=== PATIENT | male | born 1960 | race Caucasian/White ===

== ENCOUNTER 2016-05-22 11:18 | Emergency (ER) | payer OTHER ==
[2016-05-22] MEDS ORDERED: NS 1,000 ML IV ONE (13:34)
--- NOTE | 2016-05-22 13:34 | UCPHY ---
H & P Time Seen by Provider: 05/22/16 13:12 Patient Type: Established HPI/ROS: 55-year-old male presents complaining of 6-12 months of left middle and left lower quadrant abdominal pain stating that he has intermittently been constipated for that entire time and has tried multiple things including high- fiber diet as well as Mag citrate, so softeners, Imodium. No nausea or vomiting He came to urgent care today because the family was able to get him out of the house, there was no particular change in his pain today as opposed to the last 6 -12 months. No fevers no chills no diarrhea. Review of systems As per HPI General no fever no chills no weakness HEENT no eye pain no eye discharge. No eye redness, no sore throat Respiratory no cough, no shortness of breath Cardiac no chest pain, no peripheral edema GI positive abdominal pain, no diarrhea, positive constipation, no nausea, no vomiting no flank pain, no hematuria, no dysuria Musculoskeletal no myalgias, no joint pain Heme no easy bruising, no easy bleeding Endo no polyuria, no polydipsia Skin no rashes, no pruritus Neuro no syncope, no dizziness, no headaches Psych is no suicidal ideation, no homicidal ideation Past Medical/Surgical History: Insulin-dependent diabetes Morbid obesity Asthma Venous stasis lower extremity changes Social History: Denies alcohol or drug use Smoking Status: Former smoker Physical Exam: 55-year-old male morbidly obese, in no acute distress nontoxic appearance afebrile HEENT atraumatic normocephalic, extraocular muscles intact, anicteric Oropharynx negative for erythema negative exudate, tolerating her own secretions Neck supple no meningismus Lungs clear to auscultation bilaterally Heart regular rate and rhythm without murmur rub or gallop Abdomen obese, bowel sounds present, no discoloration, tender to palpation left middle quadrant, no guarding no rebound no pulsatile mass palpable Back no CVA tenderness, no step-offs, no spinal tenderness Extremities no cyanosis clubbing, trace edema, venous stasis changes bilateral lower extremities Neuro alert and oriented, no focal deficits Constitutional: Initial Vital Signs Temperature (C) 36.4 C 05/22/16 11:46 Heart Rate 81 05/22/16 11:46 Respiratory Rate 20 05/22/16 11:46 Blood Pressure 151/73 H 05/22/16 11:46 O2 Sat (%) 91 L 05/22/16 11:46 O2 Delivery Mode Room Air Allergies/Adverse Reactions: Penicillins Allergy (Intermediate, Verified 05/22/16 11:44) Hives meperidine HCl [From Demerol] Allergy (Verified 05/22/16 11:44) Home Medications: Medication Instructions Recorded Acetaminophen [Tylenol 325mg (*)] 650 mg PO Q6H PRN 04/03/14 Albuterol Sulfate [Albuterol 2 puffs IH Q4H PRN 04/03/14 Inhaler Hfa] Cholecalciferol Vit D3 [Vitamin D3 1,000 units PO DAILY 04/03/14 (*)] Fluticasone/Salmeter 500/50Mcg 1 puffs IH BID 04/03/14 [Advair 500/50 (*)] Hydrocodone/APAP 5/325 [[place] 1 tab PO BID PRN 04/03/14 5/325 (*)] Insulin Glargine [Lantus 100 0 units SC HS 04/03/14 UNITS/ML (*)] Insulin Regular, Human [Humulin R 20 unit SQ DAILY@17 04/03/14 U-500] Insulin Regular, Human [Humulin R 30 unit IJ DAILY 04/03/14 U-500] Ipratropium/Albuterol [Duoneb (*)] 3 ml IH QID 04/03/14 Metformin HCl [Glucophage 1000 mg] 1,000 mg PO BIDMEAL 04/03/14 Docusate Sodium [Colace 100 MG (*)] 100 mg PO BID #30 cap 05/10/14 Hyoscyamine Sulfate [Levsin, 0.125 - 0.25 mg SL Q6 PRN #20 tab 05/10/14 Hyomax-Sl 0.125 mg (RX)] Cpap 05/11/14 Oxygen 05/11/14 Cyclobenzaprine [Flexeril 10 MG 10 mg PO TID PRN #30 tab 07/02/14 (*)] oxyCODONE IR [Oxycodone Ir (*)] 5 - 10 mg PO Q4-6PRN PRN #20 tab 07/02/14 Lisinopril 40 BID 08/25/15 Clonidine 05/22/16 TOPIRAMATE 01/28/17 Verapamil 05/22/16 Medical Decision Making - Diagnostics Imaging: CT abdomen negative for acute pathology ED Course/Re-evaluation: Patient seen and evaluated for left-sided abdominal pain of 6-12 months duration. Physical exam benign other than morbid obesity Labs within normal limits Blood sugar elevated Impression Left sided abdominal pain, unknown etiology Some component of constipation Hyperglycemia, no acidosis Plan Given IV fluids CT abdomen negative for acute pathology Patient advised to continue constipation regimen including increasing fiber Patient also advised to follow up with primary care physician as soon as possible - Data Points Laboratory Results: Laboratory Results 05/22/16 13:26 05/22/16 13:26 Medications Given: Discontinued Medications Sodium Chloride (Ns) 1,000 mls @ 0 mls/hr IV ONCE ONE PRN Reason: Wide Open Stop: 05/22/16 13:35 Last Admin: 05/22/16 13:30 Dose: 1,000 mls Departure - Departure Disposition: Home, Routine, Self-Care Clinical Impression: Constipation, Left sided abdominal pain of unknown cause Condition: Good Instructions: Constipation (ED), High Fiber Diet (ED) Referrals: Galileo Mccabe MD [Primary Care Provider] - As per Instructions - PQRS PQRS Measurement: na
[2016-05-22 13:38] LABS: % IMMATURE GRANULYOCYTES 0.4 % (0.0-1.1); ABSOLUTE IMMATURE GRANULOCYTES 0.04 10^3/uL (0.00-0.10); ADD DIFF? NO; ADD MORPH? NO; ADD SCAN? NO; ATYPICAL LYMPHOCYTE FLAG 0 (0-99); FRAGMENT RBC FLAG 0 (0-99); HEMATOCRIT 40.3 % (40.0-51.0); HEMOGLOBIN 12.4 g/dL (13.7-17.5); LEFT SHIFT FLG 0 (0-99); LIPEMIA HEMOLYSIS FLAG 80 (0-99); MEAN CELL HEMOGLOBIN 27.3 pg (27.9-34.1); MEAN CELL HEMOGLOBIN CONCENTR. 30.8 g/dL (32.4-36.7); MEAN CELL VOLUME 88.8 fL (81.5-99.8); MEAN PLATELET VOLUME 10.3 fL (8.7-11.7); PLATELET CLUMPS FLAG 0 (0-99); PLATELET COUNT 231 10^3/uL (150-400); RED BLOOD CELL COUNT 4.54 10^6/uL (4.40-6.38); RED CELL DISTRIBUTION WIDTH 15.5 % (11.5-15.2)
[2016-05-22 13:49] LABS: ALBUMIN 3.7 g/dL (3.5-5.0); BILIRUBIN,TOTAL 0.6 mg/dL (0.1-1.4); CALCIUM 9.2 mg/dL (8.5-10.4); CREATININE 1.9 mg/dL (0.7-1.3); POTASSIUM 4.3 mEq/L (3.5-5.2); TOTAL PROTEIN 7.7 g/dL (6.3-8.2)
[2016-05-22 15:12] LABS: COLOR YELLOW; LEUKOCYTE ESTERASE,URINE NEGATIVE (NEGATIVE); NITRITE,URINE NEGATIVE (NEGATIVE); PH,URINE 5.5 (5.0-7.5)
[2016-05-22 15:25] LABS: MUCUS 2+ /lpf (NONE-1+); WBC,URINE NONE SEEN /hpf (0-3)
[2016-05-22 15:34] VITALS: BP 157/65; PULSE 74; TEMP 97.7
[2016-05-22 15:45] VITALS: O2SAT 95
[2016-05-22 15:49] VITALS: RESP 16
--- NOTE | 2016-05-22 16:36 | CT ---
CT Scan of the Abdomen and Pelvis, Without Contrast Indication: Left lower quadrant pain. Obesity and renal insufficiency. Technique: Multidetector helical CT imaging was performed from the kidneys to the urinary bladder wi thout contrast. Dose reduction techniques were utilized. Comparison: None. Findings: Large body habitus, with the left flank extending beyond the [id number] results in mild attenuation artifact. The subcutaneous tissues are not included in the [id number]. No pneumoperitoneum, free fluid, or mass. Several borderline enlarged lymph nodes are present in the bilateral inguinal and left external iliac distribution. Bowel pattern is normal with scattered diverticula throughout the sigmoid colon. No acute diverticuli tis or bowel obstruction. No hydronephrosis, nephrolithiasis, or ureteral calculi. The urinary bladder is completely empty. The noncontrast liver, spleen, pancreas, gallbladder, and adrenal glands are normal. The abdominal ao rta is normal caliber. The lung bases are clear. No fracture or bone lesion. Mild multilevel degenera tive disk and facet arthropathy. Impression: 1. No acute intraabdominal process. 2. Nonspecific bilateral inguinal left external iliac lymphadenopathy may be sequela of chronic venou s insufficiency and inflammation. Recommend follow up. 3. Minimal diverticulosis. No acute diverticulitis. 4. No hydronephrosis or ureteral calculi. Comment: The case was discussed with Dr. Randa Silva at 3:10 p.m. May 22, 2016. Attention: This CT examination is specifically designed to evaluate patients who are clinically susp ected of having acute obstructive uropathy. This examination does not use radiographic contrast, and as such, provides only a limited evaluation of the abdomen, pelvis and retroperitoneum. If there i s further clinical suspicion for pathological conditions other than obstructive uropathy, a complete CT evaluation of the abdomen and pelvis utilizing intravenous, oral, and rectal contrast should be co nsidered.
== END 2016-05-22 15:40 | disposition home or self-care (01) ==
LOC: CED 11:18
DX: R10.32 Left lower quadrant pain (principal); K59.00 Constipation, unspecified; E11.9 Type 2 diabetes mellitus without complications; E66.01 Morbid (severe) obesity due to excess calories; Z68.43 Body mass index [BMI] 50.0-59.9, adult; Z87.891 Personal history of nicotine dependence
CPT/HCPCS: 74176-PO; 80053-PO; 81003-PO; 81015-PO; 83690-PO; 85025-PO; 96360-PO; G0463-PO

== ENCOUNTER 2016-06-13 08:57 | Emergency (ER) | payer OTHER ==
[2016-06-13 09:36] VITALS: TEMP 98.6
[2016-06-13 10:28] LABS: COLOR YELLOW; LEUKOCYTE ESTERASE,URINE NEGATIVE (NEGATIVE); NITRITE,URINE NEGATIVE (NEGATIVE); PH,URINE 6.5 (5.0-7.5)
[2016-06-13] MEDS ORDERED: DIAZEPAM 5 MG TAB PO ONE (10:32)
--- NOTE | 2016-06-13 10:39 | UCPHY ---
H & P Time Seen by Provider: 06/13/16 09:29 Patient Type: Established HPI/ROS: This pleasant morbidly obese patient has a sensation of difficulty urinating over the past 24 hours with mild suprapubic discomfort. He has also had constipation recently it has been taking multiple [id number] medications with partial relief. He did have a small bowel movement today but was slightly firm. He has had similar symptoms in the past with extensive workup by Dr. Salazar of Urology that was negative for any significant pathology in terms of prostate or other. Currently he denies any discomfort passing urine he just feels like he is having small amounts he is having urgency. ROS: No fevers or chills. No nausea vomiting. No flank pain. No testicle pain. No urethral discharge. No significant abdominal pain 7 point ROS is otherwise negative Past Medical/Surgical History: Morbid obesity Previous negative prostatic workup with Dr. Salazar Diabetes Constipation Smoking Status: Former smoker Physical Exam: General Appearance: Pleasant morbidly obese (greater than 300 lb) male Alert, no distress. Eyes: Pupils equal and round no pallor or injection. ENT, Mouth: Mucous membranes moist. Respiratory: There are no retractions, lungs are clear to auscultation. Cardiovascular: Regular rate and rhythm. Gastrointestinal: Obese, soft, mild lower belly tenderness over the bladder region. No guarding or rebound. Back: No CVA tenderness : No testicle tenderness Neurological: Alert Skin: Warm and dry, no rashes. DIFFERENTIAL DIAGNOSIS: After history and physical exam differential diagnosis was considered for lower urinary obstruction, dehydration, constipation causing pressure to the bladder region, morbid obesity causing some mechanical obstruction. Constitutional: Initial Vital Signs Temperature (C) 37 C 06/13/16 09:23 Heart Rate 65 06/13/16 09:23 Respiratory Rate 20 06/13/16 09:23 Blood Pressure 145/78 H 06/13/16 09:23 O2 Sat (%) 91 L 06/13/16 09:23 O2 Delivery Mode Room Air O2 (L/minute) 2 Allergies/Adverse Reactions: Penicillins Allergy (Intermediate, Verified 06/13/16 09:38) Hives meperidine HCl [From Demerol] Allergy (Verified 06/13/16 09:38) Home Medications: Medication Instructions Recorded Acetaminophen [Tylenol 325mg (*)] 650 mg PO Q6H PRN 04/03/14 Albuterol Sulfate [Albuterol 2 puffs IH Q4H PRN 04/03/14 Inhaler Hfa] Cholecalciferol Vit D3 [Vitamin D3 1,000 units PO DAILY 04/03/14 (*)] Fluticasone/Salmeter 500/50Mcg 1 puffs IH BID 04/03/14 [Advair 500/50 (*)] Hydrocodone/APAP 5/325 [[place] 1 tab PO BID PRN 04/03/14 5/325 (*)] Insulin Glargine [Lantus 100 0 units SC HS 04/03/14 UNITS/ML (*)] Insulin Regular, Human [Humulin R 20 unit SQ DAILY@17 04/03/14 U-500] Insulin Regular, Human [Humulin R 30 unit IJ DAILY 04/03/14 U-500] Ipratropium/Albuterol [Duoneb (*)] 3 ml IH QID 04/03/14 Metformin HCl [Glucophage 1000 mg] 1,000 mg PO BIDMEAL 04/03/14 Docusate Sodium [Colace 100 MG (*)] 100 mg PO BID #30 cap 05/10/14 Hyoscyamine Sulfate [Levsin, 0.125 - 0.25 mg SL Q6 PRN #20 tab 05/10/14 Hyomax-Sl 0.125 mg (RX)] Cpap 05/11/14 Oxygen 05/11/14 Cyclobenzaprine [Flexeril 10 MG 10 mg PO TID PRN #30 tab 07/02/14 (*)] oxyCODONE IR [Oxycodone Ir (*)] 5 - 10 mg PO Q4-6PRN PRN #20 tab 07/02/14 Lisinopril 40 BID 08/25/15 Clonidine 05/22/16 TOPIRAMATE 05/22/16 Verapamil 05/22/16 Diazepam [Valium 5 MG (*)] 5 mg PO TID PRN #15 tab 06/13/16 Docusate Sodium [Colace 100 MG (*)] 100 mg PO BID PRN #20 cap 06/13/16 MDM/Departure - MDM Medications Given: Discontinued Medications Diazepam (Valium) 5 mg PO EDNOW ONE Stop: 06/13/16 10:33 Last Admin: 02/19/17 10:53 Dose: 5 mg ED Course/Re-evaluation: A Stringer cath was placed by our nurse with minimal urine output. Review of urinalysis reveals microscopic hematuria otherwise normal. Presumably the microscopic hematuria attributable to the Stringer cath placement. I think the symptoms are primarily due to constipation I counseled the patient regarding this. No evidence of UTI surgical abdomen or other concerns - Depart Disposition: Home, Routine, Self-Care Clinical Impression: Urinary urgency, Anxiety Condition: Good Instructions: Constipation (ED), High Fiber Diet (ED) Additional Instructions: Diagnoses: 1. Urinary urgency 2. Constipation 3. Anxiety Plan: George oil 1-2 tbsp a day for constipation Colace stool softener MiraLax High-fiber diet plenty fluids Valium for anxiety if needed Follow up with primary care physician Return for any significant worsening despite the treatment plan Prescriptions: Diazepam [Valium 5 MG (*)] 5 mg PO TID PRN #15 tab PRN Reason: Anxiety Docusate Sodium [Colace 100 MG (*)] 100 mg PO BID PRN #20 cap PRN Reason: Constipation Referrals: Galileo Mccabe MD [Primary Care Provider] - As per Instructions - PQRS PQRS Measurement: NA
[2016-06-13 10:41] LABS: RBC,URINE 25-50 /hpf (0-3)
[2016-06-13 10:42] LABS: BACTERIA 1+ /hpf (NONE SEEN)
[2016-06-13 13:24] VITALS: BP 137/70; PULSE 67; RESP 18; O2SAT 93
== END 2016-06-13 11:06 | disposition home or self-care (01) ==
LOC: CED 08:57
DX: R39.15 Urgency of urination (principal); K59.00 Constipation, unspecified; F41.9 Anxiety disorder, unspecified; E11.9 Type 2 diabetes mellitus without complications; E66.01 Morbid (severe) obesity due to excess calories; Z87.891 Personal history of nicotine dependence
CPT/HCPCS: 81003-PO; 81015-PO; 99214-PO; G0463-PO

== ENCOUNTER 2017-01-04 06:38 | Day surgery (SDC) | payer OTHER ==
[2016-12-13 13:20] LABS: ANION GAP 12 mEq/L (8-16); CALCIUM 9.5 mg/dL (8.5-10.4); CARBON DIOXIDE 26 mEq/l (22-31); CHLORIDE 105 mEq/L (97-110); CREATININE 1.9 mg/dL (0.7-1.3); GLOMERULAR FILTRATION RATE 37; GLUCOSE 100 mg/dL (70-100); POTASSIUM 4.4 mEq/L (3.5-5.2); SODIUM 143 mEq/L (134-144)
--- NOTE | 2016-12-14 10:02 | CPEKG ---
Heart Rate: 63 RR Interval: 952 P-R Interval: 220 QRSD Interval: 94 QT Interval: 452 QTC Interval: 463 P [place]: 14 QRS [place]: -9 T Wave [place]: 46 EKG Severity - ABNORMAL ECG - EKG Impression: SINUS RHYTHM EKG Impression: FIRST DEGREE AV BLOCK Electronically Signed By: Burak Lombardo 15-Dec-2016 15:33:04
--- NOTE | 2017-01-04 07:21 | PDANEPAE ---
ANE History of Present Illness EGD ANE Past Medical History - Cardiovascular History Hx Hypertension: Yes Hx Arrhythmias: No Hx Chest Pain: No Hx Coronary Artery / Peripheral Vascular Disease: No Hx CHF / Valvular Disease: No Hx Palpitations: No Cardiovascular History Comment: SOB WITH STAIRS AND SOME WALKING HX COPD - Pulmonary History Hx COPD: Yes Hx Asthma/Reactive Airway Disease: Yes Hx Recent Upper Respiratory Infection: No Hx Oxygen in Use at Home: No Hx Sleep Apnea: Yes Pulmonary History Comment: PLACED ON RX 12/09/17 FOR URI. FLORENCIA USES C-PAP WITH OXYGEN. INSTRUCTED TO BRING DOS. PE 2010 - Neurologic History Hx Cerebrovascular Accident: No Hx Seizures: No Hx Dementia: No - Endocrine History Hx Diabetes: Yes Hypothyroid: No Hyperthyroid: No Obesity: severe Endocrine History Comment: IDDM SINCE 1993. CHECKS BLOOD SUGARS - Renal History Hx Renal Disorders: Yes Renal History Comment: UA FREQUENCY - Liver History Hx Hepatic Disorders: No - Neurological & Psychiatric Hx Hx Neurological and Psychiatric Disorders: Yes Neurological / Psychiatric History Comment: DEPRESSION/ANXIETY - Cancer History Hx Cancer: No - Congenital Disorder History Hx Congenital Disorders: No - GI History GERD: no Hx Gastrointestinal Disorders: Yes Gastrointestinal History Comment: LT UPPER QUANDRANT PAIN. DIFFICULTY WITH BOWELS. CHANGE IN BOWEL HABITS - Other Health History Other Health History: ANDERS PALSY RT SIDE OF FACE DROOPS. VENOUS INSUFFICIENCY. JAIME FOOT NEUROPATHY - Chronic Pain History Chronic Pain: Yes (WHOLE BODY MOSTLY LEGS) - Surgical History Prior Surgeries: LT ANKLE ORIF WITH POST HARDWARE REMVL 2010. LT SHLDR RTC. RT ANKLE REPAIR. JAIME VEIN STRIPPING ANE Review of Systems Review of systems is: negative (Severe obesity Neuropathy upper and lower extemities) Review of Systems: - Exercise capacity METS (RN): 3 METS ANE Patient History - Allergies Allergies/Adverse Reactions: Penicillins Allergy (Intermediate, Verified 06/13/16 09:38) Hives meperidine HCl [From Demerol] Allergy (Verified 06/13/16 09:38) - Home Medications Home Medications: Cholecalciferol Vit D3 [Vitamin D3 (*)] 1,000 units PO DAILY 04/03/14 [Last Taken Unknown] Hydrocodone/APAP 5/325 [[place] 5/325 (*)] 1 tab PO BID PRN 04/03/14 [Last Taken Unknown] Insulin Glargine [Lantus 100 UNITS/ML (*)] 45 units SC DAILY06 04/03/14 [Last Taken 01/04/17 06:00] Insulin Regular, Human [Humulin R U-500] 20 unit SQ TID 04/03/14 [Last Taken 08/09] metFORMIN HCL [Glucophage 1000 mg] 1,000 mg PO BIDMEAL 04/03/14 [Last Taken 02/08] Oxygen 2.5 NASAL HS 05/11/14 [Last Taken Unknown] Lisinopril PO BID 08/25/15 [Last Taken 01/04/17 06:00] Clonidine PO BID 05/22/16 [Last Taken 01/04/17 06:00] TOPIRAMATE PO BID 05/22/16 [Last Taken 01/04/17 06:00] Verapamil PO BID 05/22/16 [Last Taken 01/04/17 06:00] Aspirin PO DAILY06 10/01/16 [Last Taken 01/03/17] Herbal Drugs PO DAILY 10/01/16 [Last Taken Unknown] Hyoscyamine Sulfate [Levsin, Hyomax-Sl 0.125 mg (RX)] 0.125 - 0.25 mg SL Q6 PRN 10/01/16 [Last Taken Unknown] Miralax 17 gm (*) PO DAILY 10/01/16 [Last Taken 01/02/17] Xanax PO HS 10/01/16 [Last Taken 01/03/17 21:00] - Anes Hx Anes Hx: no prior problems - Smoking Hx Smoking Status: Former smoker - Alcohol Use Alcohol Use: Rarely - Family Anes Hx Family Anes Hx: none ANE Labs/Vital Signs - Labs Result Diagrams: 12/13/16 12:30 - Vital Signs Height: 175.26 cm Weight: 161.479 kg ANE Physical Exam - Airway Neck exam: decreased ROM Mallampati Score: Class 4 - Pulmonary Pulmonary: no respiratory distress - Cardiovascular Cardiovascular: regular rate and rhythym - ASA Status ASA Status: IV ANE Anesthesia Plan Anesthesia Plan: GA with mask Total IV Anesthesia: Yes
[2017-01-04] MEDS ORDERED: MIDAZOLAM 2 MG/2 ML VIAL IVP ONE (07:27)
--- NOTE | 2017-01-04 07:27 | PDGENHP ---
History & Physical Chief Complaint: Constipation, LUQ abd pain History of Present Illness: Constipation, LLQ pain Relevant Physical Exam: GEN: NAD. Cardiac: RRR. Lungs: CTA B. Abd: Soft, nt, nd
[2017-01-04] MEDS ORDERED: D5W 1,000 ML IV SCH (07:30)
[2017-01-04] MEDS ORDERED: PROPOFOL/EMULSION 500 MG/50 ML BOTTLE IV ONE (07:32)
[2017-01-04] MEDS ORDERED: GLYCOPYRROLATE 0.2 MG/1 ML VIAL ONE (07:32)
[2017-01-04] MEDS ORDERED: LIDOCAINE 1% 2 ML INJ ID PRN (07:42)
[2017-01-04] MEDS ORDERED: LR 1,000 ML IV ONE (07:42)
[2017-01-04] MEDS ORDERED: PROPOFOL 200 MG/20 ML VIAL ONE (08:04)
[2017-01-04] MEDS ORDERED: LIDOCAINE 2% 5 ML SDV ONE (08:05)
[2017-01-04] MEDS ORDERED: ONDANSETRON 4 MG/2 ML VIAL IVP PRN (08:15)
[2017-01-04] MEDS ORDERED: NALOXONE HCL 0.4 MG/ML INJ IVP PRN (08:15)
--- NOTE | 2017-01-04 08:16 | POSTANESTH ---
Post Anesthetic Evaluation Cardiovascular Status: Similar to Pre-Op Cond Respiratory Status: Similar to Pre-op Cond. Level of Consciousness/Mental Status: Can Participate in Eval Pain Control: Adequate, Prn Tx Ordered Nausea/Vomiting Control: Adequate, Prn Tx Ordered Complications Possibly Related to Anesthesia: None Noted
--- NOTE | 2017-01-04 08:22 | GIREPORT ---
[facility] Surgical Services - Endoscopy Department Patient Name: Ky Ta Procedure Date: 01/04/2017 7:08 AM Attending / ER Physician: Felix Baez MD Procedure: Upper GI endoscopy Indications: Epigastric abdominal pain, Abdominal pain in the left lower quadrant Providers: Felix Baez MD Medicines: Monitored Anesthesia Care Complications: No immediate complications. Findings: The examined esophagus was normal. The Z-line was regular and was found 44 cm from the incisors. Localized mild inflammation characterized by erosions, erythema and friability was found in the gastric antrum. Biopsies were taken with a cold forceps for histology. Verification of patient identification for the specimen was done by the physician and nurse using the patient's name and date. Estimated blood loss was minimal. The examined duodenum was normal. Biopsies were taken with a cold forceps for histology. Verification of patient identification for the specimen was done by the physician and nurse using the patient's name and date. Estimated blood loss was minimal. Estimated Blood Loss: Estimated blood loss: none. Post Op Diagnosis: - Normal esophagus. - Z-line regular, 44 cm from the incisors. No evidence of Zabala's, esophagitis, or varices. - Gastritis. Biopsied. - Normal examined duodenum. Biopsied. Recommendation: - Discharge patient to home (with escort). - Resume previous diet. - Continue present medications. - Use Prilosec (omeprazole) 20 mg PO daily for 2 months. - Avoid NSAIDS. - Await pathology results. Results are available within 10 days. - Thank you for allowing me to participate in the care of your patient. Attending Participation: I personally performed the entire procedure. Felix Baez MD Felix Baez MD 01/04/2017 8:20:55 AM Number of Addenda: 0 Note Initiated On: 01/04/2017 7:08 AM Total Procedure Duration Time 0 hours 8 minutes 51 seconds [email or web address]
--- NOTE | 2017-01-04 08:28 | GIREPORT ---
[facility] Surgical Services - Endoscopy Department Patient Name: Ky Ta Procedure Date: 01/04/2017 7:05 AM Attending / ER Physician: Felix Baez MD Procedure: Colonoscopy Indications: Abdominal pain in the left lower quadrant, Constipation. Patient Profile: Last Colonoscopy: 2004. Providers: Felix Baez MD Medicines: Monitored Anesthesia Care Complications: No immediate complications. Findings: The perianal and digital rectal examinations were normal. The terminal ileum appeared normal. A large amount of stool was found at the hepatic flexure, in the ascending colon, in the cecum and appendiceal orifice, precluding visualization. A 1 mm polyp was found in the rectum. The polyp was sessile. The polyp was removed with a cold biopsy forceps. Resection and retrieval were complete. Verification of patient identification for the specimen was done by the physician and nurse using the patient's name and date. Estimated blood loss was minimal. The retroflexed view of the distal rectum and anal verge was normal and showed no anal or rectal abnormalities. Estimated Blood Loss: Estimated blood loss: none. Post Op Diagnosis: - Preparation of the colon was poor. - The examined portion of the ileum was normal. - Stool at the hepatic flexure, in the ascending colon, in the cecum and at the appendiceal orifice. - One 1 mm polyp in the rectum, removed with a cold biopsy forceps. Resected and retrieved. - The distal rectum and anal verge are normal on retroflexion view. Recommendation: - Discharge patient to home (with escort). - Resume previous diet. - Continue present medications. - Repeat colonoscopy at the next available appointment because the bowel preparation was poor. Please schedule at the hospital ([facility]) with a 2 day GoLytely prep. - Await pathology results. Results are available within 10 days. - Thank you for allowing me to participate in the care of your patient. Attending Participation: I personally performed the entire procedure. Felix Baez MD Felix Baez MD 01/04/2017 8:28:05 AM Number of Addenda: 0 Note Initiated On: 01/04/2017 7:05 AM Total Procedure Duration Time 0 hours 17 minutes 34 seconds [email or web address]
[2017-01-04 09:38] VITALS: BP 114/64; PULSE 64; RESP 16
[2017-01-04 10:06] VITALS: TEMP 97.5; O2SAT 96
== END 2017-01-04 09:55 | disposition home or self-care (01) ==
LOC: FSGY 06:38
PROVIDERS: ATTEND Internal Medicine Gastroenterology
PROC: 0DJD8ZZ Inspection of Lower Intestinal Tract, Via Natural or Artificial Opening Endoscopic (ICD-10-PCS; principal; 2017-01-04 07:30)
PROC: 0DJ08ZZ Inspection of Upper Intestinal Tract, Via Natural or Artificial Opening Endoscopic (ICD-10-PCS; principal; 2017-01-04 07:30)
PROC: 0DB78ZX Excision of Stomach, Pylorus, Via Natural or Artificial Opening Endoscopic, Diagnostic (ICD-10-PCS; principal; 2017-01-04 07:30)
PROC: 0DBP8ZX Excision of Rectum, Via Natural or Artificial Opening Endoscopic, Diagnostic (ICD-10-PCS; principal; 2017-01-04 07:30)
DX: K59.00 Constipation, unspecified (principal); R10.32 Left lower quadrant pain; K62.1 Rectal polyp; R10.13 Epigastric pain; K29.70 Gastritis, unspecified, without bleeding; I10 Essential (primary) hypertension; J44.9 Chronic obstructive pulmonary disease, unspecified; E11.9 Type 2 diabetes mellitus without complications; Z79.4 Long term (current) use of insulin; G47.33 Obstructive sleep apnea (adult) (pediatric)
CPT/HCPCS: J2250; J2704

== ENCOUNTER 2017-02-01 05:59 | Day surgery (SDC) | payer OTHER ==
[2017-02-01] MEDS ORDERED: LR 1,000 ML IV ONE (06:58)
[2017-02-01] MEDS ORDERED: LIDOCAINE 1% 2 ML INJ ID PRN (06:58)
--- NOTE | 2017-02-01 07:26 | PDANEPAE ---
ANE History of Present Illness constipation,abdominal pain ANE Past Medical History - Cardiovascular History Hx Hypertension: Yes Hx Arrhythmias: No Hx Chest Pain: No Hx Coronary Artery / Peripheral Vascular Disease: No Hx CHF / Valvular Disease: No Hx Palpitations: No Cardiovascular History Comment: SOB WITH STAIRS AND SOME WALKING HX COPD - Pulmonary History Hx COPD: Yes Hx Asthma/Reactive Airway Disease: Yes Hx Recent Upper Respiratory Infection: No Hx Oxygen in Use at Home: No Hx Sleep Apnea: Yes Sleep Apnea Screening Result - Last Documented: Positive Pulmonary History Comment: PLACED ON RX 12/09/17 FOR URI. FLORENCIA USES C-PAP WITH OXYGEN. INSTRUCTED TO BRING DOS. PE 2010 - Neurologic History Hx Cerebrovascular Accident: No Hx Seizures: No Hx Dementia: No - Endocrine History Hx Diabetes: Yes Endocrine History Comment: IDDM SINCE 1993. CHECKS BLOOD SUGARS - Renal History Hx Renal Disorders: Yes Renal History Comment: UA FREQUENCY - Liver History Hx Hepatic Disorders: No - Neurological & Psychiatric Hx Hx Neurological and Psychiatric Disorders: Yes Neurological / Psychiatric History Comment: DEPRESSION/ANXIETY - Cancer History Hx Cancer: No - Congenital Disorder History Hx Congenital Disorders: No - GI History Hx Gastrointestinal Disorders: Yes Gastrointestinal History Comment: LT UPPER QUANDRANT PAIN. DIFFICULTY WITH BOWELS. CHANGE IN BOWEL HABITS - Other Health History Other Health History: ANDERS PALSY RT SIDE OF FACE DROOPS. VENOUS INSUFFICIENCY. JAIME FOOT NEUROPATHY - Chronic Pain History Chronic Pain: Yes (WHOLE BODY MOSTLY LEGS) - Surgical History Prior Surgeries: LT ANKLE ORIF WITH POST HARDWARE REMVL 2010. LT SHLDR RTC. RT ANKLE REPAIR. JAIME VEIN STRIPPING ANE Review of Systems Review of Systems: - Exercise capacity METS (RN): 3 METS ANE Patient History - Allergies Allergies/Adverse Reactions: Penicillins Allergy (Intermediate, Verified 06/13/16 09:38) Hives meperidine HCl [From Demerol] Allergy (Verified 06/13/16 09:38) - Home Medications Home Medications: RX: Cholecalciferol Vit D3 [Vitamin D3 (*)] 1,000 units PO DAILY 04/03/14 [Last Taken 1 Week Ago ~01/25/17] RX: Hydrocodone/APAP 5/325 [[place] 5/325 (*)] 1 tab PO BID PRN 04/03/14 [Last Taken 1 Month Ago ~01/02/17] RX: Insulin Glargine [Lantus 100 UNITS/ML (*)] 45 units SC DAILY06 12/10/14 [ Last Taken 2 Days Ago ~01/30/17] RX: Insulin Regular, Human [Humulin R U-500] 20 unit SQ TID 04/03/14 [Last Taken 2 Days Ago ~01/30/17] RX: metFORMIN HCL [Glucophage 1000 mg] 1,000 mg PO BIDMEAL 04/03/14 [Last Taken 01/25/17] Oxygen 2.5 NASAL HS 05/11/14 [Last Taken 1 Day Ago ~01/31/17] Lisinopril PO BID 08/25/15 [Last Taken 02/01/17 04:00] Clonidine PO BID 05/22/16 [Last Taken 02/01/17 04:00] TOPIRAMATE PO BID 05/22/16 [Last Taken 02/01/17 04:00] Verapamil PO BID 05/22/16 [Last Taken 01/30/17] Aspirin PO DAILY06 10/01/16 [Last Taken 1 Week Ago ~01/25/17] Herbal Drugs PO DAILY 10/01/16 [Last Taken 1 Week Ago ~01/25/17] Hyoscyamine Sulfate [Levsin, Hyomax-Sl 0.125 mg (RX)] 0.125 - 0.25 mg SL Q6 PRN 10/01/16 [Last Taken Unknown] Miralax 17 gm (*) PO DAILY 10/01/16 [Last Taken 01/28/17] Xanax PO HS 10/01/16 [Last Taken 1 Day Ago ~01/31/17] - NPO status NPO Since - Liquids (Date): 01/31/17 NPO Since - Liquids (Time): 20:00 NPO Since - Solids (Date): 01/30/17 NPO Since - Solids (Time): 19:00 - Smoking Hx Smoking Status: Former smoker ANE Labs/Vital Signs - Vital Signs Blood Pressure: 129/71 Heart Rate: 79 Respiratory Rate: 18 O2 Sat (%): 90 Height: 175.26 cm Weight: 161.479 kg ANE Physical Exam - Airway Neck exam: FROM Mallampati Score: Class 3 Mouth exam: normal dental/mouth exam - Pulmonary Pulmonary: no respiratory distress - Cardiovascular Cardiovascular: regular rate and rhythym - ASA Status ASA Status: III ANE Anesthesia Plan Total IV Anesthesia: Yes
--- NOTE | 2017-02-01 07:39 | PDGENHP ---
History & Physical Chief Complaint: LLQ abdominal pain Relevant Physical Exam: GEN: NAD. Cardiac: RRR. Lungs: CTA B. Abd: Soft, nt, nd
[2017-02-01] MEDS ORDERED: PROPOFOL/EMULSION 500 MG/50 ML BOTTLE IV ONE (08:35)
[2017-02-01] MEDS ORDERED: NALOXONE HCL 0.4 MG/ML INJ IVP PRN (08:49)
--- NOTE | 2017-02-01 08:56 | GIREPORT ---
[facility] Surgical Services - Endoscopy Department Patient Name: Ky Ta Procedure Date: 02/01/2017 8:24 AM Patient Type: Outpatient Attending / ER Physician: Felix Baez MD Procedure: Colonoscopy Indications: Screening for colorectal malignant neoplasm. Poor prep colonoscopy last month. 1 small adenomatous polyp was removed at that time. Providers: Felix Baez MD Medicines: Monitored Anesthesia Care Complications: No immediate complications. Description of Procedure: After obtaining informed consent, the scope was passed under direct vision. Throughout the proce dure, the patient's blood pressure, pulse, and oxygen saturations were monitored continuously. The Colonoscope with irrigation channel was introduced through the anus and advanced to the terminal ileum, with identification of the appendiceal orifice and IC valve. The colonoscopy was performe d without difficulty. The patient tolerated the procedure well. The quality of the bowel preparati on was good. Findings: The perianal and digital rectal examinations were normal. The terminal ileum appeared normal. A 2 mm polyp was found in the cecum. The polyp was sessile. The polyp was removed with a cold bi opsy forceps. Resection and retrieval were complete. Verification of patient identification for the specimen was done by the physician and nurse using the patient's name and date. Estimated blood loss was minimal. A 3 mm polyp was found in the descending colon. The polyp was sessile. The polyp was removed wit h a cold snare. Resection and retrieval were complete. Verification of patient identification for e specimen was done by the physician and nurse using the patient's name and date. Estimated blood loss was minimal. A few small-mouthed diverticula were found in the transverse colon and ascending colon. The retroflexed view of the distal rectum and anal verge was normal and showed no anal or rectal abnormalities. Estimated Blood Loss: Estimated blood loss: none. Post Op Diagnosis: - The examined portion of the ileum was normal. - One 2 mm polyp in the cecum, removed with a cold biopsy forceps. Rese cted and retrieved. - One 3 mm polyp in the descending colon, removed with a cold snare. Resected and retrieved. - Diverticulosis in the transverse colon and in the ascending colon. - The distal rectum and anal verge are normal on retroflexion view. Recommendation: - Discharge patient to home (with escort). - High fiber diet. - Continue present medications. - Repeat colonoscopy date to be determined after pending pathology resu lts are reviewed for surveillance based on pathology results. If both polyp s are adenomatous, a repeat colonoscopy in 3 years is recommended (polyp last month was also adenomatous), otherwise repeat colonoscopy in 5 years is recommended. - Await pathology results. Results are available within 10 days. - Thank you for allowing me to participate in the care of your patient. Attending Participation: I personally performed the entire procedure. Felix Baez MD Felix Baez MD 02/01/2017 8:56:00 AM Number of Addenda: 0 Note Initiated On: 02/01/2017 8:24 AM Total Procedure Duration Time 0 hours 9 minutes 29 seconds [email or web address]
--- NOTE | 2017-02-01 08:57 | POSTANESTH ---
Post Anesthetic Evaluation Cardiovascular Status: Normal, Stable Respiratory Status: Normal, Stable Level of Consciousness/Mental Status: Can Participate in Eval Pain Control: Adequate, Prn Tx Ordered Nausea/Vomiting Control: Adequate, Prn Tx Ordered Complications Possibly Related to Anesthesia: None Noted
[2017-02-01 10:34] VITALS: BP 121/61; PULSE 70; RESP 12; TEMP 97.3; O2SAT 92
== END 2017-02-01 10:32 | disposition home or self-care (01) ==
LOC: FSGY 05:59
PROVIDERS: ATTEND Internal Medicine Gastroenterology
PROC: 0DBH8ZX Excision of Cecum, Via Natural or Artificial Opening Endoscopic, Diagnostic (ICD-10-PCS; principal; 2017-02-01 08:00)
PROC: 0DBM8ZX Excision of Descending Colon, Via Natural or Artificial Opening Endoscopic, Diagnostic (ICD-10-PCS; principal; 2017-02-01 08:00)
DX: D12.0 Benign neoplasm of cecum (principal); D12.4 Benign neoplasm of descending colon
CPT/HCPCS: J2704

== ENCOUNTER → 2017-07-11 | Outpatient (CLI) | payer OTHER | LOC: BRMIMAGING 13:39 | PROVIDERS: ATTEND Internal Medicine Nephrology | DX: N18.3 Chronic kidney disease, stage 3 (moderate) (principal) | CPT/HCPCS: 76770-PO ==

== ENCOUNTER 2017-09-16 15:44 | Emergency (ER) | payer OTHER ==
--- NOTE | 2017-09-16 16:27 | EDPHY ---
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 He presents today complaining of pain in both hands as well as the left shoulder and left upper arm. Pain moderate and worse with certain movements. Radiates down his arm for his wrist. Not associated with weakness or numbness in fingers of either hand. Denies headache or loss of consciousness or neck or back pain. REVIEW OF SYSTEMS: Eye: no change in vision ENT: no sore throat Cardiac: No syncope or chest pain Pulmonary: Not short of breath Abdomen: no vomiting, diarrhea, abdominal pain Musculoskeletal: Also has some right knee greater than left knee pain but does not think he has a fracture or ligamentous injury, does not feel it is unstable. Skin: Abrasion to the right knee, both legs are wrapped for peripheral neuropathy which is stable. Neuro: no headache Constitutional: no fever : no urinary symptoms A comprehensive 10 point review of systems is otherwise negative aside from elements mentioned in the history of present illness. PAST MEDICAL HISTORY: Includes diabetes, left rotator cuff surgery by Dr. Altagracia Weller, ankle surgery. PE, renal insufficiency. Social history: Current nonsmoker. General Appearance: Alert and conversant, cooperative. Eyes: No scleral icterus. No hemotympanum, pupils equal and reactive. ENT, Mouth: Normal mucous membranes. Respiratory: Normal respiratory effort, breath sounds equal, lungs are clear to auscultation. Cardiovascular: Regular rate and rhythm. Gastrointestinal: Abdomen is soft and non tender. Specifically nontender over the spleen. Neurological: Alert, face symmetric, normal motor and sensory in extremities. Skin: Right knee abrasion. Musculoskeletal: Right clavicle and upper extremity is nontender except for the right palm. Both knees of normal range of motion and no bony tenderness and are stable to varus and valgus stress and Ronn's and anterior and posterior drawer. Patient has left shoulder tenderness but no spinal tenderness. Tenderness is all distal and lateral to the AC joint. No clavicular tenderness. Proximal humerus is tender and has pain with rotation. Normal range of motion of the left elbow. He has left wrist tenderness and left palm tenderness but no snuffbox tenderness. Normal motor sensory and capillary refill in both hands. Psychiatric: Not agitated. Emergency Department course/MDM: 1700: 1 [place] for pain, P[employer] WORK[employer] query performed. 1724: X-rays all personally interpreted is negative. Possible left humerus fracture, or recurrent rotator cuff injury or humeral contusion. Warned that I won't necessarily be able to differentiate between those in the emergency department. Patient states he understands. Sling, pain medication, follow up with his orthopedic surgeon. Smoking Status: Former smoker Constitutional: Initial Vital Signs Temperature (C) 36.8 C 09/16/17 16:48 Heart Rate 69 09/16/17 16:48 Respiratory Rate 18 09/16/17 16:48 Blood Pressure 138/73 H 09/16/17 16:48 O2 Sat (%) 91 L 09/16/17 16:48 O2 Delivery Mode Room Air Allergies/Adverse Reactions: Penicillins Allergy (Intermediate, Verified 09/16/17 16:40) Hives meperidine HCl [From Demerol] Allergy (Verified 09/16/17 16:40) Home Medications: Medication Instructions Recorded Cholecalciferol Vit D3 [Vitamin D3 1,000 units PO DAILY 04/03/14 (*)] Hydrocodone/APAP 5/325 [[place] 1 tab PO BID PRN 04/03/14 5/325 (*)] Insulin Glargine [Lantus 100 45 units SC DAILY06 04/03/14 UNITS/ML (*)] Insulin Regular, Human [Humulin R 20 unit SQ TID 04/03/14 U-500] metFORMIN HCL [Glucophage 1000 mg] 1,000 mg PO BIDMEAL 04/03/14 Oxygen 2.5 NASAL HS 05/11/14 Lisinopril PO BID 08/25/15 Clonidine PO BID 05/22/16 TOPIRAMATE PO BID 05/22/16 Verapamil PO BID 05/22/16 Aspirin PO DAILY06 10/01/16 Herbal Drugs PO DAILY 10/01/16 Hyoscyamine Sulfate [Levsin, 0.125 - 0.25 mg SL Q6 PRN 10/01/16 Hyomax-Sl 0.125 mg (RX)] Miralax 17 gm (*) PO DAILY 10/01/16 Xanax PO HS 10/01/16 Hydrocodone/APAP 5/325 [[place] 1 - 2 tab PO Q4-6PRN PRN #11 tab 09/16/17 5/325] Medical Decision Making - Diagnostics Imaging Results: Imaging Impressions Hand X-Ray 09/16/17 16:26 Impression: Moderate to severe osteoarthritis of the right first carpometacarpal joint. Hand X-Ray 09/16/17 16:27 Impression: Mild osteoarthritis left hand, most prominent at the 1st carpometacarpal joint. Humerus X-Ray 09/16/17 16:27 Impression: No acute fracture or destructive osseous lesion of the left humerus. Shoulder X-Ray 09/16/17 16:27 Impression: 1. Mild osteoarthritis of the left shoulder. 2. No acute fracture. 3. Possible chronic left AC joint separation. Wrist X-Ray 09/16/17 16:27 Impression: Mild osteoarthritis predominantly in the left first carpometacarpal joint. Negative x-rays of left and right hand, left wrist, left shoulder and left humerus. Personally interpreted. Imaging: I viewed and interpreted images myself - Data Points Medications Given: Discontinued Medications Hydrocodone Bitart/Acetaminophen ([place] 5/325) 1 tab PO EDNOW ONE Stop: 09/16/17 16:57 Last Admin: 09/16/17 17:18 Dose: 1 tab Departure - Departure Disposition: Home, Routine, Self-Care Clinical Impression: Contusion of left shoulder, initial encounter, Unspecified sprain of left wrist , initial encounter Condition: Good Instructions: Contusion in Adults (ED) Referrals: Galileo Mccabe MD [Primary Care Provider] - As per Instructions Altagracia Weller MD [Medical Doctor] - 3-4 days, if not improved Prescriptions: Hydrocodone/APAP 5/325 [[place] 5/325] 1 - 2 tab PO Q4-6PRN PRN #11 tab PRN Reason: For Pain
[2017-09-16] MEDS ORDERED: HYDROCODONE/APAP 5/325 TAB PO ONE (16:56)
[2017-09-16 20:13] VITALS: BP 142/72
== END 2017-09-16 18:00 | disposition home or self-care (01) ==
LOC: CED 15:44
DX: S40.012A Contusion of left shoulder, initial encounter (principal); S63.502A Unspecified sprain of left wrist, initial encounter; E11.9 Type 2 diabetes mellitus without complications; Z79.4 Long term (current) use of insulin; Z87.891 Personal history of nicotine dependence; Z79.82 Long term (current) use of aspirin; W01.0XXA Fall on same level from slipping, tripping and stumbling without subsequent striking against object, initial encounter; Y92.513 Shop (commercial) as the place of occurrence of the external cause
CPT/HCPCS: 73030-PO; 73060-PO; 73110-PO; 73130-PO

== ENCOUNTER → 2018-01-06 | Outpatient (CLI) | payer OTHER | LOC: FIMAGING 17:41 | PROVIDERS: ATTEND Orthopaedic Surgery | DX: M75.102 Unspecified rotator cuff tear or rupture of left shoulder, not specified as traumatic (principal) ==

== ENCOUNTER 2018-01-18 14:02 | Emergency (ER) | payer OTHER ==
--- NOTE | 2018-01-18 14:59 | EDPHY ---
H & P Stated Complaint: left lower leg ankle foot pain since Tuesday . ? trauma Time Seen by Provider: 01/18/18 14:59 HPI/ROS: HPI CHIEF COMPLAINT: Left lateral Foot Pain x 4 days. HISTORY OF PRESENT ILLNESS: 57-year-old male, history of diabetes, neuropathy, previous left ankle surgery, with hardware removal, additionally morbid obesity , history of PE, and history her right foot surgery, presents emergency room stating that he developed left lateral foot pain x4 days. Unable bear weight on it. Patient does not remember any acute trauma. However states he may been compensating by giving his right foot arrest by putting more weight on his left foot. He is focally tender in 1 area over the 4th and 5th metacarpal heads. Denies any fever, no significant swelling, no redness, no warmth. No history of direct trauma. Past Medical History: Past medical history significant pulmonary embolism, diabetes, rotator cuff surgery Past Surgical History: Rotator cuff surgery. Social History: Denies drugs alcohol tobacco. Family History: Noncontributory ROS REVIEW OF SYSTEMS: 10 Systems were reviewed and negative with the exception of the elements mentioned in the history of present illness. Exam Constitutional triage nursing summary reviewed, vital signs reviewed, awake/ alert. Eyes normal conjunctivae and sclera, EOMI, PERRLA. HENT normal inspection, atraumatic, moist mucus membranes, no epistaxis, neck supple/ no meningismus, no raccoon eyes. Respiratory clear to auscultation bilaterally, normal breath sounds, no respiratory distress, no wheezing. Cardiovascular rate normal, regular rhythm, no murmur, no edema, distal pulses normal. Gastrointestinal soft, non-tender, no rebound, no guarding, normal bowel sounds, no distension, no pulsatile mass. Genitourinary no CVA tenderness. Musculoskeletal LLE: Good distal pulse, good cap refill, chronic venous stasis changes of the leg, neurovascularly intact with good cap refill. Does have peripheral neuropathy cyst sensation is a little bit decreased. However focally tender over the 4th and 5th metatarsal heads. He has good distal pulse. No significant swelling. No crepitus. No calf tenderness. No streaking, no abscess, no cellulitis, no redness appreciated. no midline vertebral tenderness, full range of motion, no calf swelling, no tenderness of extremities, no meningismus, good pulses, neurovascularly intact. Skin pink, warm, & dry, no rash, skin atraumatic. Neurologic awake, alert and oriented x 3, AAOx3, moves all 4 extremities equally, motor intact, sensory intact, CN II-XII intact, normal cerebellar, normal vision, normal speech. Psychiatric normal mood/affect. Heme/Lymph/Immune no lymphadenopathy. Differential Diagnosis: Includes but is not limited to in a particular order: Left foot contusion, left foot sprain, tendinitis, stress fracture, infection, gout Medical Decision Making: Here in emergency room this patient appears well nontoxic no acute distress with stable vital signs. No evidence of infection on exam. Most likely has an overuse injury for stress fracture versus tendinitis. Could also be gout. Plan will be for elevation, ice, walking boot to help immobilize and give comfort, additionally [place] for pain control. Patient unable take ibuprofen due to diabetes and underlying kidney disease. States he has taken Tylenol but does not help. Will x-ray as well. Do recommend additionally follows up closely with podiatry. Also discussed return precautions return emergency room there is worsening pain , swelling, redness, warmth, fever. This time there is no evidence of infection. Re-evaluation: X-ray abdominal bilateral ankles, left foot reviewed. Negative for acute fracture. Walking boot be provided podiatry follow-up. [place] for pain control limited supply. Recommend elevation, ice, rest Possible denies worse overuse injury versus foot contusion. Source: Patient - Personal History Current Tetanus Diphtheria and Acellular Pertussis (TDAP): Yes Tetanus Vaccine Date: 2011 - Medical/Surgical History Hx Asthma: No Hx Chronic Respiratory Disease: Yes Hx Diabetes: Yes Hx Cardiac Disease: No Hx Renal Disease: Yes Hx Cirrhosis: No Hx Alcoholism: No Hx HIV/AIDS: No Hx Splenectomy or Spleen Trauma: No Other PMH: diabetes, neuropathy, back and shoulder pain (chronic),ACUTE CHF, COPD, PE,kidney insufficiency - Social History Smoking Status: Former smoker Constitutional: Initial Vital Signs Temperature (C) 36.8 C 01/18/18 14:12 Heart Rate 85 01/18/18 14:12 Respiratory Rate 18 01/18/18 14:12 Blood Pressure 111/66 01/18/18 14:12 O2 Sat (%) 92 01/18/18 14:12 O2 Delivery Mode Room Air Allergies/Adverse Reactions: Penicillins Allergy (Intermediate, Verified 09/16/17 16:40) Hives acetaminophen [From Percocet] Allergy (Verified 01/18/18 14:25) meperidine HCl [From Demerol] Allergy (Verified 09/16/17 16:40) oxycodone [From Percocet] Allergy (Verified 01/18/18 14:25) Home Medications: Medication Instructions Recorded Cholecalciferol Vit D3 [Vitamin D3 1,000 units PO DAILY 04/03/14 (*)] Insulin Regular, Human [Humulin R 20 unit SQ TID 04/03/14 U-500] metFORMIN HCL [Glucophage 1000 mg] 1,000 mg PO BIDMEAL 04/03/14 Oxygen 2.5 NASAL HS 05/11/14 Lisinopril PO BID 08/25/15 Clonidine PO BID 05/22/16 TOPIRAMATE PO BID 05/22/16 Verapamil PO BID 05/22/16 Aspirin PO DAILY06 10/01/16 Miralax 17 gm (*) PO DAILY 10/01/16 Xanax PO HS 10/01/16 Hydrocodone/APAP 5/325 [[place] 1 - 2 tab PO Q4H PRN #10 tab 01/18/18 5/325] Proair Hfa 01/18/18 Medical Decision Making - Diagnostics Imaging Results: Imaging Impressions Foot X-Ray 01/18/18 14:39 Impression: 1. No acute osseous abnormality seen left foot. 2. Focal thickening of the cortex medial distal shaft left third metatarsal could be related to previous stress fracture response. 3. Moderate plantar calcaneal spur. Ankle X-Ray 01/18/18 14:40 Impression: 1. Degenerative changes about the ankle joint bilaterally. 2. Moderate plantar calcaneal spurs bilaterally. Ankle X-Ray 01/18/18 14:46 Impression: 1. Degenerative changes about the ankle joint bilaterally. 2. Moderate plantar calcaneal spurs bilaterally. Departure - Departure Disposition: Home, Routine, Self-Care Clinical Impression: Foot sprain Qualifiers: Encounter type: initial encounter Laterality: left Qualified Code(s): S93.602A - Unspecified sprain of left foot, initial encounter Condition: Good Instructions: Foot Sprain (ED) Additional Instructions: 1. Recommend ice. 2. Recommend elevation and rest. 3. Walking boot for immobilization and comfort 4. Follow up with Podiatry. 5. Return to the ER if worse. Referrals: Galileo Mccabe MD [Primary Care Provider] - As per Instructions Shalom Cho DPM [Doctor of Podiatric Medicine] - As per Instructions Prescriptions: Hydrocodone/APAP 5/325 [[place] 5/325] 1 - 2 tab PO Q4H PRN #10 tab PRN Reason: Pain, Moderate
[2018-01-18] MEDS ORDERED: HYDROCODONE/APAP 5/325 TAB PO ONE (16:11)
[2018-01-18] MEDS ORDERED: HYDROCODONE/APAP 5/325 TAB ONE (16:12)
[2018-01-18 18:54] VITALS: BP 126/70
== END 2018-01-18 16:20 | disposition home or self-care (01) ==
LOC: CED 14:02
DX: S93.602A Unspecified sprain of left foot, initial encounter (principal); E11.9 Type 2 diabetes mellitus without complications; Z86.711 Personal history of pulmonary embolism; Z87.891 Personal history of nicotine dependence
CPT/HCPCS: 73610-PO; 73630-PO; L4386

== ENCOUNTER 2018-04-15 11:59 | Emergency (ER) | payer OTHER ==
[2018-04-15] MEDS ORDERED: fentaNYL 100 MCG/2 ML INJ IVP ONE ×2 (12:58→15:19)
--- NOTE | 2018-04-15 13:35 | EDPHY ---
H & P Smoking Status: Former smoker <Apryl Stewart Ayla - Last Filed: 04/15/18 20:23> <SanyaThuan Gavi - Last Filed: 04/17/18 07:01> Time Seen by Provider: 04/15/18 12:00 HPI/ROS: CHIEF COMPLAINT: Left elbow pain HISTORY OF PRESENT ILLNESS: Patient presents with complaints of left arm and elbow pain. He states he woke up with the pain on . He states Tuesday night he went to bed and it did not hurt although he felt "cold" at that time. He denies any fevers. In the morning on he woke up he said his elbow and areas both proximal and distal to the elbow were painful and sore. He states it has been worse since that time and now is very difficult to move. Most motions are painful and he feels like he is unable to straighten it out completely. He denies numbness or tingling to the wrist hand or forearm. Again he has had no fevers or chills. He denies any recent trauma. He denies any shortness of breath, chest pain, worsening lower extremity swelling, nausea , vomiting, blood sugar problems. He states he does have rotator cuff problems in that arm and is due for surgery but denies new pain to the left shoulder. REVIEW OF SYSTEMS: Constitutional: No fever, no chills. Eyes: No discharge. ENT: No sore throat. Cardiovascular: No chest pain, no palpitations. Respiratory: No cough, no shortness of breath. Gastrointestinal: No abdominal pain, no vomiting. Genitourinary: No dysuria. Musculoskeletal: No back pain. Skin: No rashes. Neurological: No headache. General Appearance: Alert, no distress. Morbidly obese. Eyes: Pupils equal and round no pallor or injection. ENT, Mouth: Mucous membranes moist. Respiratory: There are no retractions, lungs are clear to auscultation. Cardiovascular: Regular rate and rhythm. Gastrointestinal: Abdomen is soft and nontender, no masses, bowel sounds normal. Neurological: Awake, alert, cranial nerves intact. Skin: Warm and dry, no rashes. Musculoskeletal: Neck is supple nontender. Extremities are symmetrical, left arm distal functions including circulation, sensation, movement intact. Decreased passive and active range of motion at the elbow especially in extension. Tenderness to palpation to the distal portion of the triceps, bursa area. Mild swelling noted. No erythema. No wounds. Psychiatric: Patient is oriented X 3, there is no agitation. Medical/surgical history: Insulin-dependent diabetes, CHF, COPD, stage III renal insufficiency, hypertension, Mckenzie's palsy, pulmonary embolism in 2010 after ortho surgery, treated. Chronic shoulder pain and back pain. Social history: Patient denies tobacco, drugs, EtOH. (Apryl Stewart) Constitutional: Initial Vital Signs Temperature (C) 36.8 C 04/15/18 12:11 Heart Rate 68 04/15/18 12:11 Respiratory Rate 18 04/15/18 12:11 Blood Pressure 143/67 H 04/15/18 12:11 O2 Sat (%) 92 04/15/18 12:11 O2 Delivery Mode Room Air O2 (L/minute) 2 Allergies/Adverse Reactions: Penicillins Allergy (Intermediate, Verified 04/15/18 12:07) Hives acetaminophen [From Percocet] Allergy (Verified 04/15/18 12:07) meperidine HCl [From Demerol] Allergy (Verified 04/15/18 12:07) oxycodone [From Percocet] Allergy (Verified 04/15/18 12:07) Home Medications: Medication Instructions Recorded Cholecalciferol Vit D3 [Vitamin D3 1,000 units PO DAILY 04/03/14 (*)] Insulin Regular, Human [Humulin R 20 unit SQ TID 04/03/14 U-500] metFORMIN HCL [Glucophage 1000 mg] 1,000 mg PO BIDMEAL 04/03/14 Oxygen 2.5 NASAL HS 05/11/14 Lisinopril PO BID 08/25/15 Clonidine PO BID 05/22/16 TOPIRAMATE PO BID 05/22/16 Verapamil PO BID 05/22/16 Aspirin 81 mg PO DAILY06 10/01/16 Miralax 17 gm (*) PO DAILY 10/01/16 Xanax PO HS 10/01/16 Proair Hfa 01/18/18 Doxycycline Hyclate [Vibramycin 100 mg PO BID #28 cap 04/15/18 100 MG (*)] Hydrocodone/APAP 5/325 [[place] 1 - 2 tab PO Q4PRN PRN #20 tab 04/15/18 5/325 (*)] Lidocaine [Lidoderm] 1 each TP DAILY #15 adh..patch 04/15/18 Methocarbamol [Robaxin 750 mg (*)] 750 - 1,500 mg PO QID PRN #30 tab 04/15/18 Medical Decision Making - Diagnostics Imaging: I viewed and interpreted images myself <Apryl Stewart - Last Filed: 04/15/18 20:23> - Diagnostics Imaging: Discussed imaging studies w/ scalloper Radiologist (Ultrasound results with Dr. Paramr) <Thuan Segundo - Last Filed: 04/17/18 07:01> - Diagnostics Imaging Results: Elbow x-rays with soft tissue swelling proximal ulna. No gas in deep tissues. No fracture. Bone spurs. (Apryl Stewart) ED Course/Re-evaluation: 2:15 p.m. Re-evaluation as IV just getting started. Patient still in pain however will be able to now give him IV pain medications. Will place in sling as well. X-rays reviewed no significant acute findings. 2:45 p.m. D-dimer back, elevated will order left upper extremity ultrasound. Blood glucose on metabolic panel at 62. Patient given cranberry juice and saltines. States ate normal lunch. Will recheck. (Apryl Stewart) Patient signed over to me at 3:00 p.m. With Doppler left upper extremity ultrasound study pending. His ongoing pain is treated with an additional dose of fentanyl followed by to hydrocodone 5 mg tabs with partial relief. Repeat examination reveals tenderness at the left elbow olecranon region and a seeming mild fullness to the olecranon bursa, though his body habitus limits exam. Ultrasound results reviewed with Dr. Parmar-negative for DVT positive fluid in the region of the olecranon bursa. Given CBC with mild elevation of white blood cell count and history of diabetes , will cover potential septic bursitis with dose of ceftriaxone IV and 2 weeks of doxycycline p. O.. I counseled patient regarding this. Plan to treat pain with Lidoderm patches and hydrocodone. He will follow up with primary care physician for any ongoing symptoms understands need to return to the emergency department given any worsening symptoms. (Thuan Segundo) Differential Diagnosis: Differential diagnosis includes but is not limited to musculoskeletal injury, olecranon bursitis, septic joint, DVT. Workup in the emergency department demonstrates no evidence of subcutaneous gas, fracture, significant arthritic changes to the elbow. Working diagnosis at this time is olecranon bursitis although patient's pain seems somewhat more diffuse than normal bursitis. No fever or systemic symptoms to suggest septic joint. At the time of my departure from the emergency department ultrasound to evaluate for upper extremity DVT pending. CBC pending. Discussed patient in detail with oncoming physician, Dr. Segundo who will follow-up on ultrasound. Low suspicion for cardiopulmonary cause despite patient's multiple comorbidities. (Apryl Stewart ) - Data Points Laboratory Results: Laboratory Results 04/15/18 14:10 Repeat fingerstick blood glucose was 107 (Thuan Segundo) Medications Given: Discontinued Medications Hydrocodone Bitart/Acetaminophen ([place] 5/325) 2 tab PO EDNOW ONE Stop: 04/15/18 16:21 Last Admin: 04/15/18 16:26 Dose: 2 tab Fentanyl (Sublimaze) 50 mcg IVP EDNOW ONE Stop: 04/15/18 12:59 Last Admin: 04/15/18 14:26 Dose: 50 mcg Fentanyl (Sublimaze) 50 mcg IVP EDNOW ONE Stop: 04/15/18 15:20 Last Admin: 04/15/18 15:28 Dose: 50 mcg Ceftriaxone Sodium/Dextrose (Rocephin 1 Gm (Premix)) 50 mls @ 100 mls/hr IV EDNOW ONE PRN Reason: Protocol Stop: 04/15/18 17:27 Last Admin: 04/15/18 17:05 Dose: 50 mls Miscellaneous Medication (Icy Hot Lidocaine/Menthol 4%/1% Patch) 1 patch TD EDNOW ONE Stop: 04/15/18 17:30 Last Admin: 04/15/18 17:44 Dose: 1 patch Point of Care Test Results: Chemistry 04/15/18 04/15/18 17:00 14:13 POC Sodium 146 mEq/L H mEq/L (135-145) POC Potassium 3.4 mEq/L mEq/L (3.3-5.0) POC Chloride 103.0 mEq/L mEq/L (97-110) POC Total CO2 27 mEq/L mEq/L (22-31) POC BUN 26 mg/dL H mg/dL (7-23) POC Creatinine 1.5 mg/dL H mg/dL (0.7-1.3) POC Glucose 103 mg/dL H mg/dL 62 mg/dL L mg/dL (70-100) (70-100) POC Calcium 9.4 mg/dL mg/dL (8.5-10.4) D-Dimer D-Dimer Collection Date 04/15/18 D-Dimer Collection Time 14:10 D-Dimer (ng/ml) 1979 Departure <Apryl Stewart L - Last Filed: 04/15/18 20:23> <Thuan Segundo - Last Filed: 04/17/18 07:01> - Departure Disposition: Home, Routine, Self-Care Clinical Impression: Olecranon bursitis of left elbow Condition: Good Instructions: Elbow Bursitis (ED) Additional Instructions: Diagnosis: Olecranon bursitis Plan: Lidoderm patches for pain Hydrocodone in addition if needed Doxycycline antibiotic Follow up primary care physician for any ongoing symptoms despite treatment plan Return if he develops high fevers or other significant worsening symptoms or additional symptoms despite treatment plan Referrals: Galileo Mccabe MD [Primary Care Provider] - As per Instructions Prescriptions: Doxycycline Hyclate [Vibramycin 100 MG (*)] 100 mg PO BID #28 cap Hydrocodone/APAP 5/325 [[place] 5/325 (*)] 1 - 2 tab PO Q4PRN PRN #20 tab PRN Reason: Pain Lidocaine [Lidoderm] 1 each TP DAILY #15 adh..patch Methocarbamol [Robaxin 750 mg (*)] 750 - 1,500 mg PO QID PRN #30 tab PRN Reason: Muscle Spasms
[2018-04-15 14:26] VITALS: BP 122/69
[2018-04-15] MEDS ORDERED: HYDROCODONE/APAP 5/325 TAB PO ONE (16:20)
[2018-04-15 16:26] LABS: PLATELET COUNT 242 10^3/uL (150-400)
[2018-04-15] MEDS ORDERED: LIDOCAINE 4%/MENTHOL 1% PATCH TD ONE (17:29)
[2018-04-15] MEDS ORDERED: PATCH REMOVAL 1 EA PATCH TD SCH (21:00)
== END 2018-04-15 17:47 | disposition home or self-care (01) ==
LOC: CED 11:59
DX: M70.22 Olecranon bursitis, left elbow (principal); E11.9 Type 2 diabetes mellitus without complications; J44.9 Chronic obstructive pulmonary disease, unspecified; I13.0 Hypertensive heart and chronic kidney disease with heart failure and stage 1 through stage 4 chronic kidney disease, or unspecified chronic kidney disease; I50.9 Heart failure, unspecified; N18.3 Chronic kidney disease, stage 3 (moderate); G51.0 Bell's palsy; Z86.711 Personal history of pulmonary embolism
CPT/HCPCS: 73060-PO; 73080-PO; 80048-PO; 93971-PO; 96365; J0696; J3010

== ENCOUNTER 2018-06-17 16:37 | Emergency (ER) | payer OTHER ==
[2018-06-17 16:44] VITALS: BP 167/68
--- NOTE | 2018-06-17 16:48 | EDPHY ---
H & P Stated Complaint: cough congestion increased sob usually on oxygen didn't bring Time Seen by Provider: 06/17/18 16:48 - Personal History Current Tetanus Diphtheria and Acellular Pertussis (TDAP): Yes Tetanus Vaccine Date: 2011 - Medical/Surgical History Hx Asthma: No Hx Chronic Respiratory Disease: Yes Hx Diabetes: Yes Hx Cardiac Disease: Yes Hx Renal Disease: Yes Hx Cirrhosis: No Hx Alcoholism: No Hx HIV/AIDS: No Hx Splenectomy or Spleen Trauma: No Other PMH: diabetes, neuropathy, back and shoulder pain (chronic),ACUTE CHF, COPD, PE,kidney insufficiency,hypertension,bells palsy - Social History Smoking Status: Former smoker Constitutional: Initial Vital Signs Temperature (C) 37.1 C 06/17/18 16:41 Heart Rate 68 06/17/18 16:41 Respiratory Rate 18 06/17/18 16:41 Blood Pressure 167/68 H 06/17/18 16:41 O2 Sat (%) 90 L 06/17/18 16:41 O2 Delivery Mode Room Air Allergies/Adverse Reactions: Penicillins Allergy (Intermediate, Verified 06/17/18 16:39) Hives acetaminophen [From Percocet] Allergy (Verified 06/17/18 16:39) meperidine HCl [From Demerol] Allergy (Verified 06/17/18 16:39) oxycodone [From Percocet] Allergy (Verified 06/17/18 16:39) Home Medications: Medication Instructions Recorded Cholecalciferol Vit D3 [Vitamin D3 1,000 units PO DAILY 04/03/14 (*)] Insulin Regular, Human [Humulin R 20 unit SQ TID 04/03/14 U-500] metFORMIN HCL [Glucophage 1000 mg] 1,000 mg PO BIDMEAL 04/03/14 Oxygen 2.5 NASAL HS 05/11/14 Lisinopril PO BID 08/25/15 Clonidine PO BID 05/22/16 TOPIRAMATE PO BID 05/22/16 Verapamil PO BID 05/22/16 Aspirin 81 mg PO DAILY06 10/01/16 Miralax 17 gm (*) PO DAILY 10/01/16 Xanax PO HS 10/01/16 Proair Hfa 01/18/18 Doxycycline Hyclate [Vibramycin 100 mg PO BID #28 cap 04/15/18 100 MG (*)] Hydrocodone/APAP 5/325 [[place] 1 - 2 tab PO Q4PRN PRN #20 tab 04/15/18 5/325 (*)] Lidocaine [Lidoderm] 1 each TP DAILY #15 adh..patch 04/15/18 Methocarbamol [Robaxin 750 mg (*)] 750 - 1,500 mg PO QID PRN #30 tab 04/15/18 Azithromycin [Zithromax] 250 mg PO DAILY #6 tab 06/17/18 methylPREDNISolone [Medrol Dose 1 each PO AD #1 ea 06/17/18 [place]] Medical Decision Making - Diagnostics Imaging: I viewed and interpreted images myself ED Course/Re-evaluation: CHIEF COMPLAINT: "Can't breathe" HISTORY OF PRESENT ILLNESS: The patient is a 57 y/o male with a history of morbid obesity, diabetes, COPD, CHF, PE, hypertension who arrives with his family member complaining of difficulty breathing for the last few days following upper respiratory illness for the last 2 weeks. He's had a productive cough unimproved with home nebulizer treatments or increasing his home O2. He is typically on 2.5LPM O2 continuously. He denies chest pain, nausea, vomiting, abdominal pain, diarrhea. He got a flu vaccination this season. REVIEW OF SYSTEMS: A comprehensive 10 system review of systems is otherwise negative aside from elements mentioned in the history of present illness and medical decision making. PHYSICAL EXAM: HR, BP, O2 Sat, RR. Temp noted General Appearance: Alert, well hydrated, appropriate, and non-toxic appearing. Head: Atraumatic without scalp tenderness or obvious injury Eyes: Pupils equal, round, reactive to light and accommodation, EOMI, no trauma , no injection. Nose: Atraumatic, no rhinorrhea, clear. Throat: There is no erythema or exudates, no lesions, normal tonsils, mucus membranes moist. Neck: Supple, nontender, no lymphadenopathy. Respiratory: No retractions, no distress, no wheezes, and no accessory muscle use. Lungs have scattered coarse rhonchi. Cardiovascular: Regular rate and rhythm, no murmurs, rubs, or gallops. Good capillary refill all extremities. Gastrointestinal: Abdomen is soft, nontender, non-distended, no masses, no rebound, no guarding, no peritoneal signs. Musculoskeletal: Normal active ROM of all extremities, atraumatic. Neurological: Alert, appropriate, and interactive. The patient has non-focal cranial nerves, motor, sensory, and cerebellar exam. Skin: No rashes, good turgor, no nodules on palpation. Past medical history: diabetes, neuropathy, back and shoulder pain (chronic), CHF, COPD, PE, kidney insufficiency, hypertension, bells palsy Past surgical history: Noncontributory Family history: Noncontributory Social history: Family member at bedside. Lives in [place]. Disabled. DIAGNOSTICS/PROCEDURES/CRITICAL CARE TIME: Chest x-ray: no infiltrate DIFFERENTIAL DIAGNOSIS: The differential diagnosis for the patient's shortness of breath and hypoxemia included but was not limited to pneumonia, myocardial infarction, acute mountain sickness, high altitude pulmonary edema, congestive heart failure, and pulmonary embolus. MEDICAL DECISION MAKING: This is an obese 57 y/o male who presents with a few-day history of dyspnea following a 2-week history of cough and upper respiratory illness. He has mild scattered rhonchi on auscultation. He is 94% room air. Symptoms consistent with COPD exacerbation following illness. Plan for chest x-ray, duo neb, flu swab. Chest x-ray does not show infiltrate. Patient is feeling improved after duo neb. He will be discharged with Medrol dose pack and azithromycin for COPD exacerbation vs bronchitis. Recommended following up with his PCP in the next few days for unimproved symptoms. Return precautions discussed. He is comfortable with this plan. - Data Points Laboratory Results: 06/17/18 17:00 Nasal Influenza A PCR Pending Nasal Influenza B PCR Pending Medications Given: Discontinued Medications Albuterol/Ipratropium (Duoneb) 3 ml IH EDNOW ONE Stop: 06/17/18 16:57 Last Admin: 06/17/18 16:57 Dose: 3 ml Departure - Departure Disposition: Home, Routine, Self-Care Clinical Impression: COPD exacerbation Condition: Good Instructions: Azithromycin (By mouth), Methylprednisolone (By mouth), COPD ( Chronic Obstructive Pulmonary Disease) (DC) Additional Instructions: 1. Take azithromycin as prescribed. Be sure to complete the entire prescription. 2. Use home nebulizers as prescribed for cough and shortness of breath. 3. Take Medrol dose pack as prescribed. 4. Follow up with your primary care provider or sole leather cutting machine operator in the next 2-3 days. 5. Return to the ED for any worsening of condition. Referrals: Galileo Mccabe MD [Primary Care Provider] - As per Instructions Prescriptions: Azithromycin [Zithromax] 250 mg PO DAILY #6 tab methylPREDNISolone [Medrol Dose [place]] 1 each PO AD #1 ea Report Scribed for: Mahad Putnam Report Scribed by: Tresa Arriaza Date of Report: 06/17/18 Time of Report: 17:18
[2018-06-17] MEDS ORDERED: IPRATROPIUM/ALBUTEROL 3 ML DEYVIAL ONE (16:55)
[2018-06-17] MEDS ORDERED: IPRATROPIUM/ALBUTEROL 3 ML DEYVIAL IH ONE (16:56)
== END 2018-06-17 17:20 | disposition home or self-care (01) ==
DX: J44.1 Chronic obstructive pulmonary disease with (acute) exacerbation (principal); E11.9 Type 2 diabetes mellitus without complications; N28.9 Disorder of kidney and ureter, unspecified; G51.0 Bell's palsy; Z79.4 Long term (current) use of insulin; Z99.81 Dependence on supplemental oxygen

== ENCOUNTER 2018-06-19 09:59 | Observation (INO) | payer OTHER ==
--- NOTE | 2018-06-19 10:49 | EDPHY ---
H & P Stated Complaint: Left elbow pain since yesterday. Time Seen by Provider: 06/19/18 10:42 HPI/ROS: CHIEF COMPLAINT: Left arm pain HISTORY OF PRESENT ILLNESS: The patient is a 57-year-old obese diabetic man with a history of PE and coronary artery disease, CHF, COPD as well as peripheral neuropathy comes to the emergency department complaining of left arm pain from his mid triceps region down to his wrist. Also mild swelling in his hand. He states that he had something similar about a month ago and had negative x-rays and was ultimately diagnosed with bursitis. He states that it took 3 weeks of antibiotics to make his symptoms go away. Is felt better now for the last few weeks. 2 days ago he presented to the ER complaining of shortness of breath and was diagnosed with COPD exacerbation and discharged with methylprednisone and azithromycin. He states that he did have left arm pain at the time but forgot to mention it. He denies chest pain. He states that he no longer is having difficulty breathing. His hand does not feel cold or numb. Modifying factors: Moderate REVIEW OF SYSTEMS: Constitutional: denies: chills, fever, recent illness, recent injury EENTM: denies: blurred vision, double vision, nose congestion Respiratory: denies: cough, shortness of breath Cardiac: denies: chest pain, irregular heart rate, lightheadedness, palpitations Gastrointestinal/Abdominal: denies: abdominal pain, diarrhea, nausea, vomiting, blood streaked stools Genitourinary: denies: dysuria, frequency, hematuria, pain Musculoskeletal: See HPI Skin: denies: lesions, rash, jaundice, bruising Neurological: denies: headache, numbness, paresthesia, tingling, dizziness, weakness Hematologic/Lymphatic: denies: blood clots, easy bleeding, easy bruising Immunologic/allergic: denies: HIV/AIDS, transplant 10 systems reviewed and negative except as noted EXAM: GENERAL: Obese, well-nourished and in no acute distress. HEAD: Atraumatic, normocephalic. EYES: Pupils equal round and reactive to light, extraocular movements intact, sclera anicteric, conjunctiva are normal. ENT: TMs normal, nares patent, oropharynx clear without exudates. Moist mucous membranes. NECK: Normal range of motion, supple without lymphadenopathy or JVD. LUNGS: Breath sounds clear to auscultation bilaterally and equal. No wheezes rales or rhonchi. HEART: Regular rate and rhythm without murmurs, rubs or gallops. ABDOMEN: Soft, nontender, normoactive bowel sounds. No guarding, no rebound. No masses appreciated. BACK: No CVA tenderness, no spinal tenderness, step-offs or deformities EXTREMITIES: Left arm pain from triceps region to hand. Mild swelling in hand. Pain with range of motion. No warmth, no erythema, no olecranon bursitis or other palpable bursa. NEUROLOGICAL: Cranial nerves II through XII grossly intact. Normal speech, normal gait. 5/5 strength, normal movement in all extremities, normal sensation , normal reflexes PSYCH: Normal mood, normal affect. SKIN: Warm, dry, normal turgor, no visible rashes or lesions. Source: Patient, Family - Personal History Current Tetanus Diphtheria and Acellular Pertussis (TDAP): Yes Tetanus Vaccine Date: 2011 - Medical/Surgical History Hx Asthma: No Hx Chronic Respiratory Disease: Yes Hx Diabetes: Yes Hx Cardiac Disease: No Hx Renal Disease: Yes Hx Cirrhosis: No Hx Alcoholism: No Hx HIV/AIDS: No Hx Splenectomy or Spleen Trauma: No Other PMH: diabetes, neuropathy, back and shoulder pain (chronic),ACUTE CHF, COPD, PE,kidney insufficiency,hypertension,bells palsy - Social History Smoking Status: Former smoker Constitutional: Initial Vital Signs Temperature (C) 36.9 C 06/19/18 10:10 Heart Rate 58 L 06/19/18 10:10 Respiratory Rate 20 06/19/18 10:10 Blood Pressure 118/58 L 06/19/18 10:10 O2 Sat (%) 94 06/19/18 10:10 O2 Delivery Mode Room Air O2 (L/minute) 2.5 Allergies/Adverse Reactions: Penicillins Allergy (Intermediate, Verified 06/19/18 10:05) Hives meperidine HCl [From Demerol] Allergy (Verified 06/19/18 10:05) oxycodone [From Percocet] Allergy (Verified 06/19/18 10:05) Home Medications: Medication Instructions Recorded Cholecalciferol Vit D3 [Vitamin D3 1,000 units PO DAILY 04/03/14 (*)] metFORMIN HCL [Glucophage 1000 mg] 1,000 mg PO BIDMEAL 04/03/14 Lisinopril [Zestril 40 mg (*)] 40 mg PO BID 08/25/15 Topiramate [Topamax 25MG (*)] 25 mg PO BID 05/22/16 Verapamil HCl [Verapamil Sr] 240 mg PO BID 05/22/16 clonIDINE [Catapres (*)] 0.1 mg PO BID 05/22/16 ALPRAZolam [Xanax 0.5 MG (*)] 0.5 mg PO DAILY 10/01/16 Aspirin EC [Aspirin EC 81 mg (*)] 81 mg PO DAILY 10/01/16 Polyethylene Glycol 3350 [Miralax 17 gm PO DAILY PRN 10/01/16 17 gm (*)] Albuterol Hfa Anes Only [Proair 2 puffs IH BID 01/18/18 Hfa Icu (*)] Azithromycin [Zithromax] 250 mg PO DAILY #6 tab 06/17/18 methylPREDNISolone [Medrol Dose 1 each PO AD #1 ea 06/17/18 [place]] Atenolol [Tenormin 25 mg (*)] 25 mg PO DAILY 06/19/18 Hydrochlorothiazide [HCTZ (*)] 50 - 100 mg PO BID 06/19/18 Insulin Detemir [Levemir] 50 unit SQ BID 06/19/18 Insulin Lispro [humALOG LISPRO 100 40 units SQ TIDMEAL 06/19/18 units/ml (*)] SIMVASTATIN 5 mg PO HS 06/19/18 Medical Decision Making - Diagnostics EKG Interpretation: An EKG obtained and was read and documented in trace view. Please see trace view for full reading and report. Sinus rhythm, first-degree block, no acute ischemic changes, similar to previous Imaging Results: Imaging Impressions Elbow X-Ray 06/19/18 10:51 Impression: 1. Elbow effusion. No acute fracture or bone lesion. 2. Stigmata of old/chronic medial epicondylitis. Extremity Venous Study 06/19/18 10:51 Impression: No evidence of DVT. Findings discussed with ISH MCGHEE 06/19/2018 at 11:33. Wrist X-Ray 06/19/18 10:51 Impression: Mild osteoarthritis unchanged. No fracture or bone lesion. Chest/Thorax CTA 06/19/18 11:34 Impression: 1. Nondiagnostic evaluation of the pulmonary arterial system due to transient interruption of the contrast column (often related to vigorous Valsalva maneuver at time of injection). 2. Clear lungs except for mild bronchitis. 3. Normal thoracic aorta. No dissection. Findings discussed with Emergency Department physician, Ish Mcghee on 2018, 13:01. Imaging: Discussed imaging studies w/ assistant property manager Radiologist ED Course/Re-evaluation: 11:40 a.m. the patient continues to have pain and tenderness to the left arm as well as edema. Ultrasound is unremarkable. X-rays unremarkable. His D-dimer is significantly elevated. Will obtain CT of his chest. He does appear slightly short breath man was seen in the year 2 days ago and diagnosed with COPD exacerbation. He is currently on azithromycin. Does have a history of PE in the past but is not currently anticoagulated. He also has a history of renal insufficiency. His creatinine today is 1.6 which is near his baseline. 1:00 p.m. the patient coughed or Valsalva'd during the contrast load. They contrast there for went the wrong direction. It is unable to rule out PE. No other obvious abnormality seen. Because of patient's elevated D-dimer and arm swelling I will start him on anticoagulation and admit to the hospitalist service for further testing. I spoke with hospital service who agrees. Patient and for refuse EMS transport. Will therefore treat with Lovenox rather than heparin Differential Diagnosis: Partial list of the Differential diagnosis considered include but were not limited to; DVT, ischemia, infection, dissection and although unlikely based on the history and physical exam, I also considered acute coronary disease, pneumonia. - Data Points Laboratory Results: 06/19/18 06/19/18 11:22 11:15 POC Sodium 146 mEq/L H mEq/L (135-145) POC Potassium 4.2 mEq/L mEq/L (3.3-5.0) POC Chloride 110.0 mEq/L mEq/L (97-110) POC Total CO2 24 mEq/L mEq/L (22-31) POC BUN 29 mg/dL H mg/dL (7-23) POC Creatinine 1.6 mg/dL H mg/dL (0.7-1.3) POC Glucose 137 mg/dL H mg/dL (70-100) POC Calcium 9.2 mg/dL mg/dL (8.5-10.4) POC Troponin I 0.00 ng/mL ng/mL (0.00-0.08) Medications Given: Discontinued Medications Enoxaparin Sodium (Lovenox) 120 mg SC EDNOW ONE Stop: 06/19/18 13:09 Last Admin: 06/19/18 13:33 Dose: 120 mg Hydromorphone HCl (Dilaudid) 1 mg IVP EDNOW ONE Stop: 06/19/18 10:53 Last Admin: 06/19/18 11:53 Dose: 1 mg Sodium Chloride (Ns) 500 mls @ 1,500 mls/hr IV ONCE ONE Stop: 06/19/18 12:31 Last Admin: 06/19/18 12:16 Dose: 500 mls Sodium Chloride (Ns) 1,000 mls @ 100 mls/hr IV CONT DEBORA Stop: 12/16/18 13:14 Last Admin: 06/19/18 16:54 Dose: 1,000 mls Ondansetron HCl (Zofran) 4 mg IVP EDNOW ONE Stop: 06/19/18 12:39 Last Admin: 06/19/18 12:44 Dose: 4 mg Ondansetron HCl (Zofran) 4 mg IVP ONCE ONE Stop: 06/19/18 14:24 Last Admin: 06/19/18 14:36 Dose: 4 mg Ondansetron HCl (Zofran) 4 mg IVP ONCE ONE Stop: 06/19/18 14:28 Last Admin: 06/19/18 18:24 Dose: Not Given Promethazine HCl (Phenergan) 12.5 mg IVP ONCE ONE Stop: 06/19/18 13:22 Last Admin: 06/19/18 18:25 Dose: Not Given Trimethoprim/Sulfamethoxazole (Bactrim Ds) 1 ea PO BID DEBORA PRN Reason: Protocol Stop: 07/19/18 17:14 Last Admin: 06/19/18 18:23 Dose: 1 ea Point of Care Test Results: CBC CBC Collection Date 06/19/18 CBC Collection Time 11:00 WBC 11.56 RBC 4.29 HGB 11.5 HCT 38.7 PLT 217 Neut # 10.20 Neut 88.2 LYMPH # 0.86 LYMPH 7.4 MCV 90.2 Chemistry 06/19/18 06/19/18 11:22 11:15 POC Sodium 146 mEq/L H mEq/L (135-145) POC Potassium 4.2 mEq/L mEq/L (3.3-5.0) POC Chloride 110.0 mEq/L mEq/L (97-110) POC Total CO2 24 mEq/L mEq/L (22-31) POC BUN 29 mg/dL H mg/dL (7-23) POC Creatinine 1.6 mg/dL H mg/dL (0.7-1.3) POC Glucose 137 mg/dL H mg/dL (70-100) POC Calcium 9.2 mg/dL mg/dL (8.5-10.4) POC Troponin I 0.00 ng/mL ng/mL (0.00-0.08) D-Dimer D-Dimer Collection Date 06/19/18 D-Dimer Collection Time 11:00 D-Dimer (ng/ml) 956 Departure - Departure Disposition: [facility] Inpatient Acute Clinical Impression: Left arm swelling, Shortness of breath Condition: Fair
[2018-06-19] MEDS ORDERED: HYDROmorphONE/DILAUDID 2 MG/ML INJ IVP ONE (10:52)
[2018-06-19] MEDS ORDERED: IOPAMIDOL (ISOVUE 370) 100 ML BTL IV ONE (11:47)
--- NOTE | 2018-06-19 11:57 | CPEKG ---
Test Reason : OPEN Blood Pressure : / mmHG Vent. Rate : 058 BPM Atrial Rate : 058 BPM P-R Int : 273 ms QRS Dur : 096 ms QT Int : 457 ms P-R-T Axes : 005 -08 049 degrees QTc Int : 449 ms Sinus rhythm Prolonged ID interval Confirmed by Erwin Mcghee ([id number]) on 06/19/2018 11:56:48 AM Referred By: ERWIN MCGHEE Confirmed By:Erwin Mcghee
[2018-06-19] MEDS ORDERED: NS 500 ML IV ONE (12:12)
[2018-06-19] MEDS ORDERED: ONDANSETRON 4 MG/2 ML VIAL IVP ONE ×3 (12:38→14:27)
[2018-06-19] MEDS ORDERED: ENOXAPARIN 120 MG/0.8 ML SYR SC ONE (13:08)
[2018-06-19] MEDS ORDERED: HYDROCODONE/APAP 5/325 TAB PO PRN (13:14)
[2018-06-19] MEDS ORDERED: ONDANSETRON 4 MG/2 ML VIAL IVP PRN (13:14)
[2018-06-19] MEDS ORDERED: ACETAMINOPHEN 325 MG TAB PO PRN (13:14)
[2018-06-19] MEDS ORDERED: ONDANSETRON DISINTEGRATING 4 MG TAB PO PRN (13:14)
[2018-06-19] MEDS ORDERED: NS 1,000 ML IV SCH (13:15)
[2018-06-19] MEDS ORDERED: ENOXAPARIN 60 MG/0.6 ML SYR SC ONE (13:16)
[2018-06-19] MEDS ORDERED: ENOXAPARIN 100 MG/ML SYR SC ONE (13:17)
[2018-06-19] MEDS ORDERED: PROMETHAZINE HCL 25 MG/ML INJ IVP ONE (13:21)
[2018-06-19] MEDS ORDERED: PROMETHAZINE HCL 25 MG/ML INJ ONE (13:24)
[2018-06-19] MEDS ORDERED: SULFAMETHOX/TMP 800/160 MG 1 TAB PO SCH (17:15)
--- NOTE | 2018-06-19 17:58 | GHP ---
[f rep st] HISTORY AND PHYSICAL DATE OF ADMISSION: 06/19/2018 CHIEF COMPLAINT: Left elbow pain, swelling. HISTORY: A 57-year-old male with multiple comorbidities including diabetes with peripheral neuropathy, CKD 3, FLORENCIA presented to [facility] with left arm pain and swelling. Pain is most notable in his left elbow that started last night. Denies trauma or any open lesion. Has become more swollen. Denies fevers, chills, or sweats. Was seen yesterday in the ER with upper respiratory symptoms and prescribed azithromycin and prednisone. Cough began 2 weeks ago, initially with green sputum, now clear. Had intermittent chills. Has had chest pressure for 1 week that comes and goes, but not associated with any short shortness of breath, diaphoresis, numbness, or tingling. Does not radiate. He has noted some increased shortness of breath with stairs, but has not had to increase his oxygen. Has not increased his baseline oxygen of 2.5 L. Next, at [facility], left upper extremity ultrasound was negative for DVT. Of concern for PE, however, CTA was inconclusive due to cough during contrast injection. He reports having bursitis last October which was treated with pain medications and oral antibiotics. REVIEW OF SYSTEMS: I completed a 10-point review of systems, negative except as noted in HPI. PAST MEDICAL HISTORY: Chronic hypoxemic respiratory failure on 2.5 L, history of provoked PE secondary to leg fracture in 2010, uncontrolled diabetes, CKD, baseline creatinine 1.7 to 1.9, mild pulmonary hypertension, FLORENCIA on CPAP, obesity, peripheral neuropathy, diastolic heart failure, mild pulmonary hypertension diagnosed on echo September 2011. PAST SURGICAL HISTORY: Left leg, shoulder, ankle, varicose veins. SOCIAL HISTORY: Lives with his in [place]. Previously worked here as the head start teacher. Actually smokes marijuana for 20 years. No tobacco. FAMILY HISTORY: Mother with tuberculosis. Father healthy. HOME MEDICATIONS: Aspirin 81 mg daily, atenolol 25 mg daily, azithromycin day 2 , vitamin D3, clonidine, Humulin insulin, lisinopril, metformin, Solu-Medrol pack, MiraLAX, oxygen, ProAir, simvastatin, Topamax, verapamil, Xanax. 2 ALLERGIES: Penicillins, meropenem, oxycodone. PHYSICAL EXAMINATION: VITAL SIGNS: Temperature 36.8, blood pressure 129/54, heart rate in 70s, respirations 20, 95% on 2 L. GENERAL: Obese male, sitting in bed, in no acute distress. HEENT: PERRLA. Moist mucous membranes. CV: Distant, but regular. LUNGS: No wheezes, but poor air movement, diminished throughout. ABDOMEN: Obese, soft, nontender, nondistended. Positive bowel sounds. : No Stringer. MUSCULOSKELETAL: Left arm is swollen, especially over elbow and hand. There is mild erythema and warmth. Has a good radial pulse. Normal cap refill. Normal sensation to touch. NEURO: 2 through 12 intact. PSYCH: Alert and oriented x3. LABS: Sodium 146, potassium 4.2, chloride of 110, creatinine 1.6, glucose 137, calcium 9.2. Troponin 0.00. D-dimer is elevated greater than 900 per Rozeski' s report. D-dimer was 956. WBC 11, hemoglobin 11, hematocrit 38, platelets 217. Left upper extremity ultrasound negative for DVT. Elbow x-ray, mild OA, no fracture. EKG normal sinus rhythm. First-degree heart block seen on prior. Elbow x-ray: Elbow effusion. CTA inconclusive due to cough during study. ASSESSMENT/PLAN: 1. Left arm swelling: Concern for a left olecranon bursitis, less suspicion for infection since afebrile and no leukocytosis. Start Doxycycline until Dr. Horan evaluates. X-ray showed effusion. No evidence of deep venous thrombosis on ultrasound. 2. Upper respiratory infection: azithromycin, today is day 2/5 3. Diabetes: home insulin. 4. Obstructive sleep apnea: On continuous positive airway pressure. 5. Chronic kidney disease: Creatinine is at baseline. 6. Diabetic neuropathy: Continue gabapentin. 7. Chest tightness: suspect related to recent upper respiratory infection. Initially concern at [facility] for pulmonary embolism with elevated D-dimer, but would expect this with chronic kidney disease. He is not tachycardic nor increased oxygen needs. CTA inconclusive due to cough with dye load. Will hold off on further imaging at this time; consider V/Q scan if clinically deteriorates. 8. Diet: Diabetic. 9. Deep venous thrombosis prophylaxis: Subcu heparin. DISPOSITION: Observation admission for orthopedic evaluation, pain control, and antibiotics. /[id number]/MODL MTDD
[2018-06-19] MEDS ORDERED: POLYETHYLENE GLYCOL 3350 17 GM PKT PO PRN (18:22)
[2018-06-19] MEDS ORDERED: PRAVASTATIN SODIUM 10 MG TAB PO SCH (21:00)
[2018-06-19] MEDS: ALBUTEROL 60 PUFFS/8 GM MDI IH SCH (21:14)
[2018-06-19] MEDS: INSULIN GLARGINE 100 UNITS/ML UNIT SC SCH (21:25)
[2018-06-19] MEDS: TOPIRAMATE 25 MG TAB PO SCH (21:27)
[2018-06-19] MEDS: VERAPAMIL ER 240 MG TAB PO SCH (21:27)
[2018-06-19] MEDS: LISINOPRIL 40 MG TAB PO SCH (21:27)
[2018-06-19] MEDS ORDERED: ALBUTEROL 3 ML DEYVIAL IH PRN (21:55)
--- NOTE | 2018-06-20 04:53 | GCON ---
[f rep st] CONSULTATION CHIEF COMPLAINT: Left elbow and forearm pain. HISTORY OF PRESENT ILLNESS: This is a 57-year-old male with a significant medical history. He presented to the emergency room with a few days of left elbow pain radiating down his forearm. He had a similar episode a few months ago, was treated with antibiotics and he ultimately got better. He also presented with shortness of breath, which is being further evaluated. He says the pain in the elbow feels better after he has gotten some pain medications but that he had difficulty moving the elbow or lifting. He has no swelling in the left upper extremity. REVIEW OF SYSTEMS: Negative other than above. 10-point review of systems negative. PAST MEDICAL HISTORY: Significant for COPD, diabetes, kidney disease, neuropathy, CHF, hypertension, and Mckenzie palsy. SOCIAL HISTORY: Former smoker. ALLERGIES: Penicillin, oxycodone, Demerol. HOME MEDICATIONS: Please see list in the medical record. FAMILY HISTORY: Noncontributory. SURGICAL HISTORY: Denies surgery on that elbow. PHYSICAL EXAM: He is alert. He is oriented and appropriate. He does not appear in any distress. Vital signs are stable. He is afebrile. His face and head are normocephalic and atraumatic. His eyes are equal and reactive. His mouth shows moist mucous membranes. His neck is supple. His right upper extremity moves well at the shoulder, elbow, and wrist with no wrist tenderness or pain. His left upper extremity, he has some difficulty moving the shoulder due to a known rotator cuff tear, but he can do this. He has 4/5 strength in his triceps and biceps. He is tender over the elbow, more so at the radial head and lateral epicondyle. He is somewhat tender over the olecranon and I can feel the bone spur. There is really no bursa in this area, however. He does have some formed swelling down his forearm and is diffusely tender throughout the forearm and hand, but mildly so. He can move his wrist and fingers pretty well. He has good intact strength in median, radial, and ulnar nerve distribution. 5/5 finger flexion, extension, abduction, and thumb circumduction. Intact and full sensation and pulses. Heart is regular rate and rhythm. His abdomen is soft. His lungs shows symmetric chest rise and good inspiratory effort. His lower extremities, he moves well. There is no acute tenderness. No other problems. RADIOGRAPHS: Elbow radiographs reveal a large olecranon bone spur, but no acute abnormality or fracture. Wrist x-ray showed mild arthritis. No fracture. ASSESSMENT: 1. Olecranon bone spur on the left with left olecranon lateral epicondylitis. 2. Left elbow joint effusion. 3. Left forearm swelling. PLAN: I discussed his condition and treatment options. He is swollen in his elbow and forearm. He does not appear to have an olecranon bursitis, however. An ultrasound was performed that ruled out a deep venous thrombosis. I think he is having pathology more from his intrinsic elbow. He had a fall on this last August, however, did well from that for quite some time. At this point, I would obtain an MRI of his left elbow to further evaluate for intra-articular pathology such as nondisplaced fracture, loose body or condylar injury. We will also be able to look at the olecranon bursa and the lateral epicondyle as well. At this point, I would continue treatment conservatively with pain medication, physical therapy, and ice. He has no real erythema, he is afebrile , and this does not appear to be a cellulitis nor septic bursa. He moves the elbow well and this would be extremely unlikely to be a septic joint. We will see what the MRI shows and make further recommendations. /[id number]/MODL MTDD
[2018-06-20] MEDS ORDERED: metFORMIN HCL 500 MG TAB PO SCH (08:00)
[2018-06-20] MEDS: ALBUTEROL 60 PUFFS/8 GM MDI IH SCH (08:15)
[2018-06-20] MEDS: INSULIN LISPRO 100 UNIT/ML SC SCH ×2 (08:19→12:28)
[2018-06-20] MEDS: LISINOPRIL 40 MG TAB PO SCH (08:22)
[2018-06-20] MEDS: TOPIRAMATE 25 MG TAB PO SCH (08:22)
[2018-06-20] MEDS: INSULIN GLARGINE 100 UNITS/ML UNIT SC SCH (08:35)
[2018-06-20] MEDS ORDERED: predniSONE 20 MG TAB PO SCH (09:00)
[2018-06-20] MEDS ORDERED: ASPIRIN EC 81 MG TAB PO SCH (09:00)
[2018-06-20] MEDS ORDERED: CHOLECALCIFEROL VIT D3 1,000 UNITS TAB PO SCH (09:00)
[2018-06-20] MEDS ORDERED: ATENOLOL 25 MG TAB PO SCH (09:00)
[2018-06-20] MEDS ORDERED: AZITHROMYCIN 250 MG TAB PO SCH (09:00)
[2018-06-20] MEDS ORDERED: DOXYCYCLINE HYCLATE 100 MG CAP/TAB PO SCH (09:00)
[2018-06-20] MEDS: VERAPAMIL ER 240 MG TAB PO SCH (09:14)
--- NOTE | 2018-06-20 10:09 | SOAPPROG ---
SOAP Progress Note Assessment/Plan: Assessment: L elbow effusion and djd flexor tendon strain Plan: MRI shows effusion consistant with his bone spurs and arthric flare. clinically improving, no signs of infection would continue to treat conservatively with ice, PT and medication wbat and rom as tolerated L elbow can follow up as outpatient 7-10 days after discharge 06/20/18 10:06 Subjective: pain and swelling improved Objective: Vital Signs Temp Pulse Resp BP Pulse Ox 36.5 C 56 L 18 127/65 H 92 06/20/18 07:52 06/20/18 07:52 06/20/18 07:52 06/20/18 07:52 06/20/18 07:52 Laboratory Results 06/20/18 04:18 06/20/18 04:18 06/19/18 06/20/18 06/21/18 05:59 05:59 05:59 Intake Total 700 Balance 700 improved elbow rom swelling improved ICD10 Worksheet Patient Problems: Problems Problem Status Onset Left arm swelling Acute Shortness of breath Acute Methicillin resistant staphylococcus aureus carrier Active
[2018-06-20 11:05] VITALS: BP 134/69
--- NOTE | 2018-06-20 11:21 | ASMTCASEMG ---
Living Arrangements What is your living Answers: With Spouse arrangement? Who do you live with? Type Of Residence What kind of residence do Answers: Apartment you live in? Discharge Plan Comments Coordination Status Comments Notes: Patient is a 57yo male with multiple comorbidities including diabetes who comes to [facility] with left arm pain and swelling.Patient is being admitted OBS for left arm swelling, upper respiratory infection, obstructive sleep apnea, chronic kidney disease, diabetic neuropathy, chest tightness, and DVT. PT/OT evals have been ordered for the patient. D/C plan TBD. CM will follow. Date Signed: 06/20/2018 11:20 AM Electronically Signed By:Jazmyne Barron LCSW
--- NOTE | 2018-06-20 11:31 | PDDCSUM ---
Discharge Summary Discharge Summary: Date of Admission: 06/19/2018 Date of Discharge: 06/20/2018 Consultants: orthopedic surgery Studies: left arm MRI Discharge Diagnoses: 1. Left elbow pain and swelling due to arthritic flare with effusion 2. Ongoing upper respiratory infection 3. CKD (baseline creatinine 1.5-1.8) 4. Insulin dependent diabetes 5. FLORENCIA on CPAP 6. Diabetic neuropathy 7. Chronic respiratory failure on 2.5L Brief Hospital Course: 57yo M with multiple comorbidities presented with acute onset left elbow/arm pain and swelling. No open wounds or erythema. He had no infectious signs of symptoms. MRI showed elbow effusion with strain of his flexor digitorum superficialis and flexor carpi radialis muscles as well as common flexor tendon origin. There was no fracture. Orthopedic surgery was consulted. His findings were consistent with an arthritic flare and no aspiration or surgical intervention was warranted. He has no history of crystal arthropathy. He is unable to take NSAIDs due to his CKD. He was already started on steroids (for an upper respiratory infection) and this should help with the swelling. I encouraged him to use ice and also gave him a short supply of [place]. Of note, he was recently started on a Z-mat and Medrol dose pack for URI sxs. He was encouraged to complete these. There was no evidence of pneumonia on chest imaging and he was on his baseline oxygen requirement. I did inform him to hold his metformin for 48 hours after contrast administration. Medications: Please refer to EMR for complete list. I sent a prescription for [place] 5/325 #8 with 0 refills to his pharmacy. Follow Up Plan: 1. To see Dr Horan in ortho clinic in 7-10 days Physical Exam: Vitals reviewed, afebrile. Alert and oriented, obese, rrr, lungs ctab, abdomen soft and nt, no rashes, no erythema of left arm and minimal edema at elbow, full ROM.
[2018-06-20] MEDS ORDERED: ALPRAZolam 0.25 MG TAB PO SCH (21:00)
[2018-06-21] MEDS ORDERED: metFORMIN HCL 500 MG TAB PO SCH (18:00)
== END 2018-06-20 12:46 | disposition home or self-care (01) ==
LOC: CED 09:59 → CEDHOLD 13:05 → F3E 16:15
PROVIDERS: ADMIT Internal Medicine; ATTEND Internal Medicine
DX: M19.022 Primary osteoarthritis, left elbow (principal); M77.12 Lateral epicondylitis, left elbow; M25.422 Effusion, left elbow; J06.9 Acute upper respiratory infection, unspecified; I25.10 Atherosclerotic heart disease of native coronary artery without angina pectoris; G47.33 Obstructive sleep apnea (adult) (pediatric); E11.42 Type 2 diabetes mellitus with diabetic polyneuropathy; I12.9 Hypertensive chronic kidney disease with stage 1 through stage 4 chronic kidney disease, or unspecified chronic kidney disease; J44.9 Chronic obstructive pulmonary disease, unspecified; N18.3 Chronic kidney disease, stage 3 (moderate); I50.9 Heart failure, unspecified; E66.9 Obesity, unspecified; G51.0 Bell's palsy; Z86.718 Personal history of other venous thrombosis and embolism; Z79.4 Long term (current) use of insulin; Z87.891 Personal history of nicotine dependence
CPT/HCPCS: 71275; 73080; 73110; 73221; 93005; 93971; 96372; 96374; 96375; 96376; 99285; G0378; 80048-ER; 84484-ER; J1170; J1650; J1815; J2405; J2550; J7512; J7613; Q9967

== ENCOUNTER → 2018-07-07 | Outpatient (CLI) | payer OTHER | LOC: FIMAGING 12:58 | PROVIDERS: ATTEND Internal Medicine Nephrology | DX: N18.3 Chronic kidney disease, stage 3 (moderate) (principal) ==

== ENCOUNTER → 2018-07-08 | Outpatient (CLI) | payer OTHER | LOC: FIMAGING 06-29 18:52 | PROVIDERS: ATTEND Podiatrist Primary Podiatric Medicine | DX: M25.572 Pain in left ankle and joints of left foot (principal); M25.571 Pain in right ankle and joints of right foot ==